=== PATIENT | female | born 1980 | race Caucasian/White ===

== ENCOUNTER 2019-11-23 08:02 | Emergency (ER) | payer BC ==
[2019-11-23] MEDS ORDERED: Sodium Chloride 0.9% 10 ML Syringe FLUSH PRN (08:30)
[2019-11-23] MEDS ORDERED: Sodium Chloride 0.9% 1,000 ML IV STA ×2 (08:31→09:18)
[2019-11-23] MEDS ORDERED: Ondansetron 4 MG/2 ML SDV IVPUSH ONE (08:31)
--- NOTE | 2019-11-23 08:58 | EDM.PDOC ---
ED HPI GENERAL MEDICAL PROBLEM - General Chief Complaint: Gastrointestinal Problem Stated Complaint: VOMITING X 5 DAYS Time Seen by Provider: 11/23/19 08:07 Source of Information: Reports: Patient History Limitations: Reports: No Limitations - History of Present Illness INITIAL COMMENTS - FREE TEXT/NARRATIVE: Patient is a 39 year old female presenting to the emergency department with complaints of 2-week history of intermittent nausea and vomiting, fatigue, and weakness. Patient states she has not felt right since about September when she was started on Synthroid 100 mcg for hypothyroidism. Prior to this, she was taking levothyroxine at a lower dose. She states that she has been feeling increasingly anxious and panicky at times. She describes have episodes where she feels like her heart is racing. Patient also states she has had a mild productive cough since April, however she does have asthma and has been attributing it to allergies. She was seen in the walk-in clinic about a week and a half ago. States lab work was done at that time and found to be normal. She received a liter of IV fluids and a prescription for Zofran. Around that time, she states she was also running a fever, however this has resolved. At one point she had some left upper quadrant abdominal pain, however this has not been present for about a week and a half. She denies any flank pain, dysuria, or frequency. On average, she vomits a couple times a day. She is able to keep fluids down, however states she is only been able to really eat crackers due to the nausea. Denies any chance she could be as she does a history of a tubal ligation. Headache Pain Score (Numeric/FACES): 3 - Related Data Allergies Allergy/AdvReac Type Severity Reaction Status Date / Time No Known Allergies Allergy Verified 11/23/19 08:25 Home Meds: Home Meds Albuterol Sulfate [Albuterol Sulfate Hfa] 1 puff INH ASDIRECTED 11/23/19 [History] Fluticasone Propionate [Flovent HFA] 1 inh INH ASDIRECTED 11/23/19 [History] Levothyroxine Sodium [Synthroid] 100 mcg PO DAILY 11/23/19 [History] Ondansetron [Zofran ODT] 4 mg PO ASDIRECTED 11/23/19 [History] Ondansetron [Zofran ODT] 4 mg PO Q6H PRN #20 tab.dis 11/23/19 [Rx] hydrOXYzine HCL [Atarax] 50 - 100 mg PO Q6H PRN #10 tab 11/23/19 [Rx] Past Medical History Respiratory History: Reports: 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 Denies: Fever HEENT: Reports: No Symptoms Respiratory: Reports: Cough. Denies: Shortness of Breath Cardiovascular: Reports: No Symptoms. Denies: Dyspnea on Exertion, Edema, Syncope Endocrine: Reports: No Symptoms GI/Abdominal: Reports: Nausea, Vomiting. Denies: Abdominal Pain, Diarrhea : Reports: No Symptoms Musculoskeletal: Reports: No Symptoms Skin: Reports: No Symptoms Neurological: Reports: No Symptoms Psychiatric: Reports: No Symptoms Hematologic/Lymphatic: Reports: No Symptoms Immunologic: Reports: No Symptoms ED EXAM, GI/ABD - Physical Exam Exam: See Below General Appearance: Alert, WD/WN, No Apparent Distress Eyes: Bilateral: Normal Appearance Respiratory/Chest: No Respiratory Distress, Lungs Clear, Normal Breath Sounds, No Accessory Muscle Use, Chest Non-Tender Cardiovascular: Normal Peripheral Pulses, Regular Rate, Rhythm, No Edema, No Gallop, No JVD, No Murmur, No Rub GI/Abdominal Exam: Normal Bowel Sounds, Soft, Non-Tender, No Organomegaly, No Distention, No Abnormal Bruit, No Mass, Pelvis Stable Neurological: Alert, Oriented, CN II-XII Intact, Normal Cognition, Normal Gait, Normal Reflexes, No Motor/Sensory Deficits Psychiatric: Normal Affect, Normal Mood Skin Exam: Warm, Dry, Intact, Normal Color, No Rash Course - Vital Signs Last Recorded V/S: Last Vital Signs Temp 99.1 F 11/23/19 11:21 Pulse 71 11/23/19 11:34 Resp 15 11/23/19 08:12 BP 130/89 11/23/19 11:21 Pulse Ox 98 11/23/19 11:21 Orthostatic Blood Pressure [ 118/87 Standing] Orthostatic Blood Pressure [ 129/95 Sitting] Orthostatic Blood Pressure [ 138/94 Supine] - Orders/Labs/Meds Orders: Active Orders 24 hr Category Date Time Status CORONAVIRUS COVID-19 PCR PHL Routine Lab 11/23/19 11:18 Received Peripheral IV Insertion Adult [OM.PC] Stat Oth 11/23/19 08:30 Ordered Labs: Laboratory Tests 11/23/19 11/23/19 11/23/19 Range/Units 08:30 08:30 10:28 WBC 8.09 (3.98-10.04) K/mm3 RBC 5.30 H (3.98-5.22) M/mm3 Hgb 16.5 H (11.2-15.7) gm/dl Hct 47.1 H (34.1-44.9) % MCV 88.9 (79.4-94.8) fl MCH 31.1 (25.6-32.2) pg MCHC 35.0 (32.2-35.5) g/dl RDW Std Deviation 49.3 H (36.4-46.3) fL Plt Count 221 (182-369) K/mm3 MPV 9.5 (9.4-12.3) fl Neut % (Auto) 72.5 H (34.0-71.1) % Lymph % (Auto) 16.1 L (19.3-51.7) % [place] % (Auto) 9.9 (4.7-12.5) % Eos % (Auto) 1.2 (0.7-5.8) Baso % (Auto) 0.2 (0.1-1.2) % Neut # (Auto) 5.86 (1.56-6.13) K/mm3 Lymph # (Auto) 1.30 (1.18-3.74) K/mm3 [place] # (Auto) 0.80 H (0.24-0.36) K/mm3 Eos # (Auto) 0.10 (0.04-0.36) K/mm3 Baso # (Auto) 0.02 (0.01-0.08) K/mm3 Sodium 140 (136-145) mEq/L Potassium 4.2 (3.5-5.1) mEq/L Chloride 102 (98-107) mEq/L Carbon Dioxide 24 (21-32) mEq/L Anion Gap 18.2 H (5-15) BUN 7 (7-18) mg/dL Creatinine 1.1 H (0.55-1.02) mg/dL Est Cr Clr Drug Dosing 57.36 mL/min Estimated GFR (MDRD) 56 (>60) mL/min BUN/Creatinine Ratio 6.4 L (14-18) Glucose 103 (74-106) mg/dL Calcium 9.3 (8.5-10.1) mg/dL Magnesium 1.8 (1.8-2.4) mg/dl Total Bilirubin 1.1 H (0.2-1.0) mg/dL AST 30 (15-37) U/L ALT 38 (14-59) U/L Alkaline Phosphatase 65 (46-116) U/L C-Reactive Protein <0.2 (<1.0) mg/dL Total Protein 7.8 (6.4-8.2) g/dl Albumin 4.4 (3.4-5.0) g/dl Globulin 3.4 gm/dL Albumin/Globulin Ratio 1.3 (1-2) Free T4 0.94 (0.76-1.46) ng/dL TSH 3rd Generation 8.813 H (0.358-3.74) uIU/mL Urine Color Yellow (Yellow) Urine Appearance Clear (Clear) Urine pH 6.5 (5.0-8.0) Ur Specific [place] > or = 1.030 (1.005-1.030) Urine Protein 1+ H (Negative) Urine Glucose (UA) Negative (Negative) Urine Ketones 2+ H (Negative) Urine Occult Blood Negative (Negative) Urine Nitrite Negative (Negative) Urine Bilirubin Negative (Negative) Urine Urobilinogen 0.2 (0.2-1.0) Ur Leukocyte Esterase Negative (Negative) U Hyaline Cast (Auto) 0-5 (0-5) /lpf Urine RBC 0-5 (0-5) /hpf Urine WBC 0-5 (0-5) /hpf Ur Squamous Epith Cells 5-10 H (0-5) /hpf Urine Bacteria Moderate H (FEW) /hpf Urine Mucus Few (FEW) /hpf Meds: Medications Discontinued Medications Generic Name Dose Route Start Last Admin Trade Name Freq PRN Reason Stop Dose Admin Diphenhydramine HCl 25 mg 10/03/20 09:29 11/23/19 09:39 Benadryl IVPUSH 11/23/19 09:30 25 mg ONETIME ONE Administration Sodium Chloride 1,000 mls @ 999 mls/hr 11/23/19 08:31 11/23/19 08:41 Normal Saline IV 11/23/19 09:31 999 mls/hr NOW STA Administration Sodium Chloride 1,000 mls @ 999 mls/hr 11/23/19 09:18 11/23/19 09:33 Normal Saline IV 11/23/19 10:18 999 mls/hr NOW STA Administration Metoclopramide HCl 7.5 mg 11/23/19 09:29 11/23/19 09:32 Reglan IVPUSH 11/23/19 09:30 7.5 mg ONETIME ONE Administration Metoclopramide HCl Confirm 11/23/19 09:30 11/23/19 09:32 Reglan Administered 11/23/19 09:31 Not Given Dose 10 mg .ROUTE .STK-MED ONE Ondansetron HCl 4 mg 11/23/19 08:31 11/23/19 08:41 Zofran IVPUSH 11/23/19 08:32 4 mg ONETIME ONE Administration Sodium Chloride 10 ml 11/23/19 08:30 11/23/19 08:41 Saline Flush FLUSH 10 ml ASDIRECTED PRN Administration Keep Vein Open - Re-Assessments/Exams Free Text/Narrative Re-Assessment/Exam: 11/23/19 09:40 Hematology was significant for hemoglobin elevated at 16.5 with a hematocrit of 47.1, anion gap 18.2, creatinine 1.1, total bili 1.1, TSH 8.813. Patient continued to be nauseous. I have ordered a second liter of saline, Reglan 7.5 mg IV, and Benadryl 25 mg IV. Patient continues to be hypothyroid. Urinalysis results are pending. 11/23/19 10:54 Urinalysis is positive for 1+ protein and 2+ ketones. Leukocyte esterase and nitrates were negative. There is no WBCs in the urine. Patient is feeling somewhat better after the IV fluids and medications given. She is had no further episodes of vomiting. We will complete a coronavirus test today as some younger adults only present with GI symptoms, however my suspicion for this is quite low. Discussed with patient that she should try to get as much fluid as she can. Gatorade and Powerade are the best options. Discussed that she is still hypothyroid, however patient states that she thinks her TSH was around 15 before her medications were started. Would like her to follow-up with her primary care provider on Monday to make her aware of her symptoms and for ongoing monitoring. I will provide a prescription for hydroxyzine to help with her intermittent anxiety and panicky feelings. She agrees to this plan. She states she has been referred to a thyroid specialist, however she has not scheduled an appointment thus far. Discharge instructions as documented. Departure - Departure Time of Disposition: 10:55 Disposition: Home, Self-Care 01 Condition: Good Clinical Impression: Nausea & vomiting Qualifiers: Vomiting type: unspecified Vomiting Intractability: non-intractable Qualified Code(s): R11.2 - Nausea with vomiting, unspecified Hypothyroidism Qualifiers: Hypothyroidism type: unspecified Qualified Code(s): E03.9 - Hypothyroidism, unspecified - Discharge Information *PRESCRIPTION DRUG MONITORING PROGRAM REVIEWED*: No *COPY OF PRESCRIPTION DRUG MONITORING REPORT IN PATIENT RAUL: No Prescriptions: hydrOXYzine HCL [Atarax] 50 - 100 mg PO Q6H PRN #10 tab PRN Reason: Anxiety Ondansetron [Zofran ODT] 4 mg PO Q6H PRN #20 tab.dis PRN Reason: Nausea/Vomiting Instructions: Nausea and Vomiting, Adult Referrals: Yolande Ferreira PENAL OFFICER [Primary Care Provider] - Forms: ED Department Discharge Additional Instructions: You were seen in the emergency department today for intermittent nausea and vomiting over the last 2 weeks as well as not feeling yourself since your thyroid medications were started September. Your work-up included blood work, urinalysis, and a coronavirus test. Your blood work revealed that you were dehydrated as well as that you continue to be hypothyroid. Your urinalysis did not show any signs of infection. COVID test results take 24-72 hours to become available and you will be notified of these. You received 2 L of IV fluid in the emergency department. You also received Zofran and Reglan for nausea. Recommend that you go home and rest. Ensure that you are taking in as much fluid as you can tolerate. Gatorade and Powerade are good choices as they have electrolytes as well as hydration. A prescription for Zofran has been sent to [facility]. Use this medication as prescribed. A prescription for hydroxyzine has been provided for anxiety. Take this as prescribed. Please be aware that this may make you tired, therefore do not drive or work after taking the medication until you know how it is going to affect you. Recommend that you call and schedule an appointment with your primary care provider Monday to make her aware of how you have been feeling and for ongoing management. If you should experience any new or worsening symptoms of concern, please do not hesitate to return to the emergency department. Sepsis Event Note (ED) - Evaluation Sepsis Screening Result: No Definite Risk - Focused Exam Vital Signs: Vital Signs Temp Pulse Resp BP Pulse Ox 11/23/19 11:34 71 11/23/19 11:21 99.1 F 98 130/89 98 11/23/19 08:12 98.0 F 111 H 15 135/94 H 97 - My Orders Last 24 Hours: My Active Orders 11/23/19 08:30 Peripheral IV Insertion Adult [OM.PC] Stat 11/23/19 11:18 CORONAVIRUS COVID-19 PCR PHL Routine - Assessment/Plan Last 24 Hours: My Active Orders 11/23/19 08:30 Peripheral IV Insertion Adult [OM.PC] Stat 11/23/19 11:18 CORONAVIRUS COVID-19 PCR PHL Routine
[2019-11-23] MEDS ORDERED: Metoclopramide 10 MG/2 ML SDV IVPUSH ONE (09:29)
[2019-11-23] MEDS ORDERED: diphenhydrAMINE 50 MG/ML SDV IVPUSH ONE (09:29)
[2019-11-23] MEDS ORDERED: Metoclopramide 10 MG/2 ML SDV ONE (09:30)
== END 2019-11-23 11:35 | disposition home or self-care (01) ==
LOC: JD.ED 08:02
DX: E03.9 Hypothyroidism, unspecified (principal); R11.2 Nausea with vomiting, unspecified; J45.909 Unspecified asthma, uncomplicated; Z98.51 Tubal ligation status; Z79.899 Other long term (current) drug therapy; Z11.59 Encounter for screening for other viral diseases
CPT/HCPCS: 36415; 80053; 81001; 83735; 84439; 84443; 85025; 86140; 87635; 96361; 96374; 96375; 99284; J1200; J2405; J2765; J7030; U0002

== ENCOUNTER 2019-12-11 13:40 | Emergency (ER) | payer BC ==
[2019-12-11] MEDS ORDERED: HYDROmorphone 0.5 MG/0.5 ML Syringe IVPUSH ONE (14:36)
[2019-12-11] MEDS ORDERED: Ondansetron 4 MG/2 ML SDV IVPUSH ONE (14:36)
[2019-12-11] MEDS ORDERED: Acetaminophen 325 MG Tab PO ONE (14:37)
--- NOTE | 2019-12-11 14:40 | EDM.PDOC ---
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 body ache relief or Tylenol 650 mg every 4 hours. You should anticipate improvement in symptoms particularily with resolution of fever over the next 48 hours. Suggest follow-up with your personal care physician towards the middle of next week to make sure that you are responding to therapy. Sepsis Event Note (ED) - Evaluation Sepsis Screening Result: No Definite Risk - Focused Exam Vital Signs: Vital Signs Temp Temp Pulse Resp BP Pulse Ox 12/11/19 14:54 36.6 C 12/11/19 13:47 36.4 C 127 H 16 141/99 H 94 L - My Orders Last 24 Hours: My Active Orders 12/11/19 14:37 EKG Documentation Completion [RC] STAT Chest 1V Frontal [CR] Stat 12/11/19 14:39 Blood Culture x2 Reflex Set [OM.PC] Stat 12/11/19 14:45 Dextrose 5%-0.9% NaCl [Dextrose 5%-Normal Saline] 1,000 ml IV ASDIRECTED 12/11/19 14:55 CULTURE BLOOD [BC] Stat 12/11/19 15:05 CULTURE BLOOD [BC] Stat 12/11/19 16:56 Head wo Cont [CT] Stat 12/11/19 17:00 Dextrose 5%-Lactated Ringers 1,000 ml IV ASDIRECTED 12/11/19 17:45 cefTRIAXone [Rocephin] 2 gm Sodium Chloride 0.9% [Normal Saline] 100 ml IV Q24H 12/11/19 18:45 Ketorolac [Toradol] 30 mg IVPUSH ONETIME - Assessment/Plan Last 24 Hours: My Active Orders 12/11/19 14:37 EKG Documentation Completion [RC] STAT Chest 1V Frontal [CR] Stat 12/11/19 14:39 Blood Culture x2 Reflex Set [OM.PC] Stat 12/11/19 14:45 Dextrose 5%-0.9% NaCl [Dextrose 5%-Normal Saline] 1,000 ml IV ASDIRECTED 12/11/19 14:55 CULTURE BLOOD [BC] Stat 12/11/19 15:05 CULTURE BLOOD [BC] Stat 12/11/19 16:56 Head wo Cont [CT] Stat 12/11/19 17:00 Dextrose 5%-Lactated Ringers 1,000 ml IV ASDIRECTED 12/11/19 17:45 cefTRIAXone [Rocephin] 2 gm Sodium Chloride 0.9% [Normal Saline] 100 ml IV Q24H 12/11/19 18:45 Ketorolac [Toradol] 30 mg IVPUSH ONETIME
[2019-12-11] MEDS ORDERED: Dextrose 5%-0.9% NaCl 1,000 ML IV SCH (14:45)
[2019-12-11] MEDS ORDERED: Dextrose 5%-Lactated Ringers 1,000 ML IV SCH (17:00)
[2019-12-11] MEDS ORDERED: cefTRIAXone 2 GM in Sodium Chloride 0.9% 100 ML IV SCH (17:45)
[2019-12-11] MEDS ORDERED: Ketorolac 30 MG/ML SDV IVPUSH SCH (18:45)
== END 2019-12-11 19:17 | disposition home or self-care (01) ==
LOC: JD.ED 13:40
DX: J01.40 Acute pansinusitis, unspecified (principal); R50.9 Fever, unspecified; J45.909 Unspecified asthma, uncomplicated; E03.9 Hypothyroidism, unspecified; Z20.828 Contact with and (suspected) exposure to other viral communicable diseases; Z79.899 Other long term (current) drug therapy
CPT/HCPCS: 36415; 70450; 71045; 80053; 81001; 82553; 82728; 83605; 83615; 83735; 83880; 84484; 84703; 85025; 85379; 85610; 85730; 86140; 87040; 87635; 93005; 96365; 96375; 99285; A9270; J0696; J1170; J1885; J2405; J7042; J7050; J7121; U0002

== ENCOUNTER 2020-04-28 14:04 | Emergency (ER) | payer BC ==
[2020-04-28] MEDS ORDERED: Sodium Chloride 0.9% 10 ML Syringe FLUSH PRN (14:29)
[2020-04-28] MEDS ORDERED: Metoclopramide 10 MG/2 ML SDV IVPUSH ONE (14:30)
[2020-04-28] MEDS ORDERED: Sodium Chloride 0.9% 1,000 ML IV ONE ×2 (14:30→16:41)
--- NOTE | 2020-04-28 17:12 | EDM.PDOC ---
<Agus Angela M - Last Filed: 04/28/20 17:00> ED HPI GENERAL MEDICAL PROBLEM - General Chief Complaint: Gastrointestinal Problem Stated Complaint: VOMITING AND UNABLE TO KEEP ANYTHING DOWN Time Seen by Provider: 04/28/20 14:14 Source of Information: Reports: Patient History Limitations: Reports: No Limitations - History of Present Illness INITIAL COMMENTS - FREE TEXT/NARRATIVE: 39 year old female presents to the Ed with complaints of nausea and vomiting x 1 week. She states that she has been unable to keep any food or fluids down. Has zofran at home but took it and then immediately drank water and vomited so she thought that it didnt work. She was seen one other time in the Ed for vomiting and did not follow up with her primary care provider after the ED visit. She has a history of hypothyroidism and stopped taking her medication more than 6 months ago because she felt like it made her "dizzy". Denies any recent fever, chills, cough or diarrhea. State she has had no energy and just wants to lay in bed. Headache Pain Score (Numeric/FACES): 3 - Related Data Allergies Allergy/AdvReac Type Severity Reaction Status Date / Time No Known Allergies Allergy Verified 04/29/20 08:45 Home Meds: Home Meds Albuterol Sulfate [Albuterol Sulfate Hfa] 1 puff INH ASDIRECTED 11/23/19 [History] Levothyroxine Sodium [Synthroid] 100 mcg PO DAILY 11/23/19 [History] Ondansetron [Zofran ODT] 4 mg PO Q6H PRN #20 tab.dis 11/23/19 [Rx] Fluticasone Propionate [Flovent HFA] 1 puff INH DAILY 04/29/20 [History] Magnesium 200 mg PO DAILY #30 tablet 04/29/20 [Rx] Metoclopramide HCl [Reglan] 10 mg PO Q6HR PRN #20 tablet 04/29/20 [Rx] Past Medical History Cardiovascular History: Reports: Syncope Respiratory History: Reports: Asthma 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 - Infectious Disease History Infectious Disease History: Reports: Chicken Pox - Past Surgical History Female Surgical History: Reports: Tubal Ligation Social & Family History - Tobacco Use Tobacco Use Status *Q: Never Tobacco User - Caffeine Use Caffeine Use: Reports: Soda - Recreational Drug Use Recreational Drug Use: No - Living Situation & Occupation Living situation: Reports: Occupation: Unemployed ED ROS GENERAL - Review of Systems Review Of Systems: See Below Constitutional: Reports: Fatigue. Denies: Fever, Chills, Diaphoresis HEENT: Reports: No Symptoms Respiratory: Reports: No Symptoms Cardiovascular: Reports: No Symptoms Endocrine: Reports: Fatigue GI/Abdominal: Reports: Nausea, Vomiting. Denies: Abdominal Pain, Constipation, Diarrhea : Reports: No Symptoms Musculoskeletal: Reports: No Symptoms Skin: Reports: No Symptoms Neurological: Reports: No Symptoms Psychiatric: Reports: No Symptoms Hematologic/Lymphatic: Reports: No Symptoms Immunologic: Reports: No Symptoms ED EXAM, GI/ABD - Physical Exam Exam: See Below Exam Limited By: No Limitations General Appearance: Alert, WD/WN, Moderate Distress Ears: Normal External Exam, Hearing Grossly Normal Nose: Normal Inspection Throat/Mouth: Normal Inspection, Normal Lips, Normal Voice, No Airway Compromise Head: Atraumatic, Normocephalic Neck: Normal Inspection, Supple, Non-Tender, Full Range of Motion Respiratory/Chest: No Respiratory Distress, Lungs Clear, Normal Breath Sounds, No Accessory Muscle Use, Chest Non-Tender Cardiovascular: Normal Peripheral Pulses, Regular Rate, Rhythm, No Edema, No Murmur GI/Abdominal Exam: Normal Bowel Sounds, Soft, Non-Tender, No Distention (Female) Exam: Deferred Rectal (Female) Exam: Deferred Back Exam: Normal Inspection, Full Range of Motion Extremities: Normal Inspection, Normal Range of Motion, Non-Tender, No Pedal Edema, Normal Capillary Refill Neurological: Alert, Oriented, Normal Cognition Psychiatric: Normal Affect, Normal Mood Skin Exam: Warm, Dry, Intact, Normal Color, No Rash Lymphatic: No Adenopathy Course - Vital Signs Text/Narrative:: I have ordered CBC, CMP, TSH, and a UA on this patient. I have also ordered a liter of NS and zofran as she is likely very dehydrated. - Re-Assessments/Exams Free Text/Narrative Re-Assessment/Exam: 04/28/20 17:12 Labs reveal a WBC of 6.28, hemoglobin 16.8, hematocrit 49.1, platelet count 125, sodium 141, potassium 3.5, chloride 95, anion gap 25.5, BUN 9, creatinine 1.0, glucose 86, calcium 10.5, magnesium 1.7, total bilirubin 1.9, AST 361, ALT 208, alk phos 102, TSH 8.706 Urinalysis reveals 3+ protein, 3+ ketones, 1+ urine occult blood, negative nitrite, 1+ bilirubin, negative leuk esterase, 10-20 casts After first liter of fluid, the patient states she is feeling much better however I am going to order 1 more liter of normal saline as she is significantly dehydrated. She is currently laying in bed eating ice. Did discuss her lab results with her. She denies any excessive alcohol intake, any excessive Tylenol intake that would elevate her liver enzymes. She states she does take a moderate amount of ibuprofen. Questioning if liver elevation is due to dehydration or hypothyroidism. 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 I also did discuss with her that when she is feeling nauseated to take Zofran and allow it to work for about 30 to 40 minutes before attempting to eat or drink anything. I have added a lipase and a GGT onto the patient's lab work. I have reviewed her case with Dr. Macario and he has agreed to take over the patient's care. Departure - Departure Disposition: Home, Self-Care 01 Clinical Impression: Vomiting, Dehydration Abdominal pain Qualifiers: Abdominal location: upper abdomen, unspecified Qualified Code(s): R10.10 - Upper abdominal pain, unspecified - Discharge Information Instructions: Dehydration, Adult, [id number] Referrals: Yolande Ferreira, [facility] [Primary Care Provider] - Forms: ED Department Discharge Additional Instructions: Clear liquids until morning, than very careful bland diet as tolerated. Zofran as previously prescribed for further nausea or vomiting as needed. US of GB as soon as that works out for you. Radiology will call you tomorrow morning to set up an appointment. That needs to be done in the morning with nothing to eat or drink since midnight the night before. Follow up with Laine Ferreira about 1 days after the US for for results, recheck, further eval and treatment as needed. Return to ED as needed if symptoms worsening in any way. Sepsis Event Note (ED) - Evaluation Sepsis Screening Result: No Definite Risk <José Macario - Last Filed: 04/30/20 07:26> Course - Vital Signs Last Recorded V/S: Last Vital Signs Temp 98.3 F 04/28/20 18:30 Pulse 90 04/28/20 18:30 Resp 16 04/28/20 18:30 BP 136/75 04/28/20 18:30 Pulse Ox 97 04/28/20 18:30 - Orders/Labs/Meds Orders: Medication Orders Sodium Chloride (Sodium Chloride 0.9% 10 Ml Syringe) 10 ml FLUSH ASDIRECTED PRN PRN Reason: Keep Vein Open Last Admin: 04/28/20 14:15 Dose: 10 ml Documented by: PERNELL Labs: Laboratory Tests 04/28/20 04/28/20 04/28/20 Range/Units 14:25 14:25 14:25 WBC 6.28 (3.98-10.04) K/mm3 RBC 5.19 (3.98-5.22) M/mm3 Hgb 16.8 H (11.2-15.7) gm/dl Hct 49.1 H (34.1-44.9) % MCV 94.6 D (79.4-94.8) fl MCH 32.4 H (25.6-32.2) pg MCHC 34.2 (32.2-35.5) g/dl RDW Std Deviation 49.4 H (36.4-46.3) fL Plt Count 125 L D (182-369) K/mm3 MPV 9.7 (9.4-12.3) fl Neut % (Auto) 80.8 H (34.0-71.1) % Lymph % (Auto) 8.0 L (19.3-51.7) % [place] % (Auto) 10.7 (4.7-12.5) % Eos % (Auto) 0 L (0.7-5.8) Baso % (Auto) 0.3 (0.1-1.2) % Neut # (Auto) 5.08 (1.56-6.13) K/mm3 Lymph # (Auto) 0.50 L (1.18-3.74) K/mm3 [place] # (Auto) 0.67 H (0.24-0.36) K/mm3 Eos # (Auto) 0.00 L (0.04-0.36) K/mm3 Baso # (Auto) 0.02 (0.01-0.08) K/mm3 Manual Slide Review Abnormal smear Sodium 141 (136-145) mEq/L Potassium 3.5 (3.5-5.1) mEq/L Chloride 95 L (98-107) mEq/L Carbon Dioxide 24 (21-32) mEq/L Anion Gap 25.5 H (5-15) BUN 9 (7-18) mg/dL Creatinine 1.0 (0.55-1.02) mg/dL Est Cr Clr Drug Dosing 65.87 mL/min Estimated GFR (MDRD) > 60 (>60) mL/min BUN/Creatinine Ratio 9.0 L (14-18) Glucose 86 (74-106) mg/dL Calcium 10.5 H (8.5-10.1) mg/dL Magnesium 1.7 L (1.8-2.4) mg/dl Total Bilirubin 1.9 H (0.2-1.0) mg/dL GGT 565 H (5-55) U/L AST 361 H (15-37) U/L ALT 208 H (14-59) U/L Alkaline Phosphatase 102 (46-116) U/L Total Protein 8.2 (6.4-8.2) g/dl Albumin 4.7 (3.4-5.0) g/dl Globulin 3.5 gm/dL Albumin/Globulin Ratio 1.3 (1-2) Lipase (73-393) U/L TSH 3rd Generation 8.706 H (0.358-3.74) uIU/mL Urine Color (Yellow) Urine Appearance (Clear) Urine pH (5.0-8.0) Ur Specific [place] (1.005-1.030) Urine Protein (Negative) Urine Glucose (UA) (Negative) Urine Ketones (Negative) Urine Occult Blood (Negative) Urine Nitrite (Negative) Urine Bilirubin (Negative) Urine Urobilinogen (0.2-1.0) Ur Leukocyte Esterase (Negative) U Hyaline Cast (Auto) (0-5) /lpf Urine RBC (0-5) /hpf Urine WBC (0-5) /hpf Ur Epithelial Cells (0-5) /hpf Urine Bacteria (FEW) /hpf Urine Mucus (FEW) /hpf 04/28/20 04/28/20 Range/Units 14:25 15:10 WBC (3.98-10.04) K/mm3 RBC (3.98-5.22) M/mm3 Hgb (11.2-15.7) gm/dl Hct (34.1-44.9) % MCV (79.4-94.8) fl MCH (25.6-32.2) pg MCHC (32.2-35.5) g/dl RDW Std Deviation (36.4-46.3) fL Plt Count (182-369) K/mm3 MPV (9.4-12.3) fl Neut % (Auto) (34.0-71.1) % Lymph % (Auto) (19.3-51.7) % [place] % (Auto) (4.7-12.5) % Eos % (Auto) (0.7-5.8) Baso % (Auto) (0.1-1.2) % Neut # (Auto) (1.56-6.13) K/mm3 Lymph # (Auto) (1.18-3.74) K/mm3 [place] # (Auto) (0.24-0.36) K/mm3 Eos # (Auto) (0.04-0.36) K/mm3 Baso # (Auto) (0.01-0.08) K/mm3 Manual Slide Review Sodium (136-145) mEq/L Potassium (3.5-5.1) mEq/L Chloride (98-107) mEq/L Carbon Dioxide (21-32) mEq/L Anion Gap (5-15) BUN (7-18) mg/dL Creatinine (0.55-1.02) mg/dL Est Cr Clr Drug Dosing mL/min Estimated GFR (MDRD) (>60) mL/min BUN/Creatinine Ratio (14-18) Glucose (74-106) mg/dL Calcium (8.5-10.1) mg/dL Magnesium (1.8-2.4) mg/dl Total Bilirubin (0.2-1.0) mg/dL GGT (5-55) U/L AST (15-37) U/L ALT (14-59) U/L Alkaline Phosphatase (46-116) U/L Total Protein (6.4-8.2) g/dl Albumin (3.4-5.0) g/dl Globulin gm/dL Albumin/Globulin Ratio (1-2) Lipase 273 (73-393) U/L TSH 3rd Generation (0.358-3.74) uIU/mL Urine Color Yellow (Yellow) Urine Appearance Slt cloudy H (Clear) Urine pH 5.5 (5.0-8.0) Ur Specific [place] > or = 1.030 (1.005-1.030) Urine Protein 3+ H (Negative) Urine Glucose (UA) Negative (Negative) Urine Ketones 3+ H (Negative) Urine Occult Blood 1+ H (Negative) Urine Nitrite Negative (Negative) Urine Bilirubin 1+ H (Negative) Urine Urobilinogen 0.2 (0.2-1.0) Ur Leukocyte Esterase Negative (Negative) U Hyaline Cast (Auto) 10-20 H (0-5) /lpf Urine RBC 0-5 (0-5) /hpf Urine WBC 0-5 (0-5) /hpf Ur Epithelial Cells 5-10 H (0-5) /hpf Urine Bacteria Few (FEW) /hpf Urine Mucus Many H (FEW) /hpf Meds: Medications Generic Name Dose Route Start Last Admin Trade Name Freq PRN Reason Stop Dose Admin Sodium Chloride 10 ml 04/28/20 14:29 04/28/20 14:15 Sodium Chloride 0.9% 10 Ml Syringe FLUSH 10 ml ASDIRECTED PRN Administration Keep Vein Open Discontinued Medications Generic Name Dose Route Start Last Admin Trade Name Freq PRN Reason Stop Dose Admin Sodium Chloride 1,000 mls @ 999 mls/hr 04/28/20 14:30 04/28/20 14:42 Normal Saline IV 04/28/20 15:30 999 mls/hr ONETIME ONE Administration Metoclopramide HCl 5 mg 04/28/20 14:30 04/28/20 14:40 Metoclopramide 10 Mg/2 Ml Sdv IVPUSH 04/28/20 14:31 5 mg ONETIME ONE Administration - Re-Assessments/Exams Free Text/Narrative Re-Assessment/Exam: 04/28/20 18:30. I assumed care from Reagan Angela after change of shift. Pt is feeling much better after 2nd liter of IVF. With her GGT and other liver enzymes mildly elevated I have offered to get an US of her Abd. She declines doing that this evening. She appears anxious to go home. Have written order for outpatient US. Discharge instr. as documented. Departure - Departure Time of Disposition: 18:12 Condition: Fair
[2020-04-28] MEDS ORDERED: HYDROmorphone 0.5 MG/0.5 ML Syringe IVPUSH ONE (18:10)
== END 2020-04-28 18:30 | disposition home or self-care (01) ==
LOC: JD.ED 14:04
DX: E86.0 Dehydration (principal); R11.2 Nausea with vomiting, unspecified; R10.10 Upper abdominal pain, unspecified; J45.909 Unspecified asthma, uncomplicated; E03.9 Hypothyroidism, unspecified; Z79.899 Other long term (current) drug therapy
CPT/HCPCS: 36415; 80053; 81001; 82977; 83690; 83735; 84443; 85025; 96361; 96374; 96375; 99284; J1170; J2765; J7030

== ENCOUNTER 2020-04-29 03:45 | Inpatient (IN) | payer BC ==
[2020-04-29] MEDS ORDERED: Sodium Chloride 0.9% 10 ML Syringe FLUSH PRN (04:11)
[2020-04-29] MEDS ORDERED: Ondansetron 4 MG/2 ML SDV IVPUSH ONE (04:11)
[2020-04-29] MEDS ORDERED: Lactated Ringers 1,000 ML IV SCH (04:15)
--- NOTE | 2020-04-29 04:19 | EDM.PDOC ---
ED HPI GENERAL MEDICAL PROBLEM - General Chief Complaint: Gastrointestinal Problem Stated Complaint: VOMITING Time Seen by Provider: 04/29/20 04:03 Source of Information: Reports: Patient History Limitations: Reports: No Limitations - History of Present Illness INITIAL COMMENTS - FREE TEXT/NARRATIVE: The patient presents with nausea and vomiting. This has been going on for about a week. She was seen here yesterday and was scheduled to have and US today. She says she has not been able to keep anything down and she is weak. Her has to carry her around now. She did get a couple liters of fluid yesterday and she did feel good when she left but lat night she started to vomit again. She is very weak. She still has her gallbladder and appendix. She had elevated liver enzymes yesterday. She does not drink and did not take acetaminophen in excess. She has no fever, chills, or cough. She has no chest pain or shortness of breath. She has no diarrhea or dysuria. She does have a history of hypothyroidism and she has not been taking her thyroid medication because it made her dizzy. Onset: Gradual Duration: Week(s): Location: Reports: Abdomen Quality: Reports: Sharp Severity: Moderate Improves with: Reports: None Worsens with: Reports: None Associated Symptoms: Reports: Nausea/Vomiting. Denies: Chest Pain, Cough, Fever/Chills, Headaches, Shortness of Breath Left Abdomen Pain Score (Numeric/FACES): 5 - Related Data Allergies Allergy/AdvReac Type Severity Reaction Status Date / Time No Known Allergies Allergy Verified 04/29/20 03:57 Home Meds: Home Meds Albuterol Sulfate [Albuterol Sulfate Hfa] 1 puff INH ASDIRECTED 11/23/19 [History] Levothyroxine Sodium [Synthroid] 100 mcg PO DAILY 11/23/19 [History] Ondansetron [Zofran ODT] 4 mg PO Q6H PRN #20 tab.dis 11/23/19 [Rx] Magnesium 200 mg PO DAILY #30 tablet 04/29/20 [Rx] Metoclopramide HCl [Reglan] 10 mg PO Q6HR PRN #20 tablet 04/29/20 [Rx] Past Medical History Cardiovascular History: Reports: Syncope Respiratory History: Reports: Asthma 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 - Infectious Disease History Infectious Disease History: Reports: Chicken Pox - Past Surgical History Female Surgical History: Reports: Tubal Ligation Social & Family History - Tobacco Use Tobacco Use Status *Q: Never Tobacco User Second Hand Smoke Exposure: No - Caffeine Use Caffeine Use: Reports: None - Recreational Drug Use Recreational Drug Use: No - Living Situation & Occupation Living situation: Reports: Occupation: Unemployed ED ROS GENERAL - Review of Systems Review Of Systems: See Below Constitutional: Reports: No Symptoms HEENT: Reports: No Symptoms Respiratory: Reports: No Symptoms Cardiovascular: Reports: No Symptoms Endocrine: Reports: No Symptoms GI/Abdominal: Reports: Abdominal Pain, Nausea, Vomiting : Reports: No Symptoms Musculoskeletal: Reports: No Symptoms ED EXAM, GI/ABD - Physical Exam Exam: See Below Exam Limited By: No Limitations General Appearance: Alert, No Apparent Distress Ears: Normal External Exam Nose: Normal Inspection Head: Atraumatic, Normocephalic Neck: Normal Inspection Respiratory/Chest: No Respiratory Distress, Lungs Clear, Normal Breath Sounds Cardiovascular: Regular Rate, Rhythm, No Edema, No Murmur GI/Abdominal Exam: Soft, No Organomegaly, No Mass, Tender (Mild tenderness to the left upper abdomen) Course - Vital Signs Last Recorded V/S: Last Vital Signs Temp 97.6 F 04/29/20 03:53 Pulse 111 H 04/29/20 03:53 Resp 20 04/29/20 03:53 BP 139/91 H 04/29/20 03:53 Pulse Ox 96 04/29/20 03:53 - Orders/Labs/Meds Orders: Active Orders 24 hr Category Date Time Status Peripheral IV Care [RC] . DIRECTED Care 04/29/20 04:11 Active UA W/MICROSCOPIC [URIN] Stat Lab 04/29/20 07:31 Ordered Lactated Ringers [Ringers, Lactated] 1,000 ml Med 04/29/20 07:35 Ordered IV .BOLUS Lactated Ringers [Ringers, Lactated] 1,000 ml Med 04/29/20 04:15 Active IV ASDIRECTED Sodium Chloride 0.9% [Saline Flush] Med 04/29/20 04:11 Active 10 ml FLUSH ASDIRECTED PRN ED Antiemetic Medication Reflex [OM.PC] Stat Oth 04/29/20 04:12 Ordered Peripheral IV Insertion Adult [OM.PC] Stat Oth 04/29/20 04:11 Ordered Labs: Laboratory Tests 04/29/20 04/29/20 04/29/20 Range/Units 04:20 04:20 04:20 WBC 5.55 (3.98-10.04) K/mm3 RBC 4.41 (3.98-5.22) M/mm3 Hgb 14.7 D (11.2-15.7) gm/dl Hct 42.8 (34.1-44.9) % MCV 97.1 H (79.4-94.8) fl MCH 33.3 H (25.6-32.2) pg MCHC 34.3 (32.2-35.5) g/dl RDW Std Deviation 50.3 H (36.4-46.3) fL Plt Count 104 L (182-369) K/mm3 MPV 10.3 (9.4-12.3) fl Neut % (Auto) 68.1 (34.0-71.1) % Lymph % (Auto) 9.5 L (19.3-51.7) % [place] % (Auto) 21.8 H (4.7-12.5) % Eos % (Auto) 0.2 L (0.7-5.8) Baso % (Auto) 0.4 (0.1-1.2) % Neut # (Auto) 3.78 (1.56-6.13) K/mm3 Lymph # (Auto) 0.53 L (1.18-3.74) K/mm3 [place] # (Auto) 1.21 H (0.24-0.36) K/mm3 Eos # (Auto) 0.01 L (0.04-0.36) K/mm3 Baso # (Auto) 0.02 (0.01-0.08) K/mm3 Manual Slide Review Abnormal smear PT 11.4 (9.7-12.0) SECONDS INR 1.07 APTT 25.3 (21.7-31.4) SECONDS Sodium 139 (136-145) mEq/L Potassium 3.5 (3.5-5.1) mEq/L Chloride 97 L (98-107) mEq/L Carbon Dioxide 24 (21-32) mEq/L Anion Gap 21.5 H (5-15) BUN 9 (7-18) mg/dL Creatinine 0.9 (0.55-1.02) mg/dL Est Cr Clr Drug Dosing 73.19 mL/min Estimated GFR (MDRD) > 60 (>60) mL/min BUN/Creatinine Ratio 10.0 L (14-18) Glucose 94 (74-106) mg/dL Lactic Acid (0.4-2.0) mmol/L Calcium 8.9 D (8.5-10.1) mg/dL Magnesium 1.4 L (1.8-2.4) mg/dl Total Bilirubin 2.0 H (0.2-1.0) mg/dL AST 268 H (15-37) U/L ALT 177 H (14-59) U/L Alkaline Phosphatase 86 (46-116) U/L Total Protein 7.1 (6.4-8.2) g/dl Albumin 4.0 (3.4-5.0) g/dl Globulin 3.1 gm/dL Albumin/Globulin Ratio 1.3 (1-2) Lipase 298 (73-393) U/L Free T4 (0.76-1.46) ng/dL HCG, Qual (NEGATIVE) Acetaminophen 0 L (10-30) ug/mL Ethyl Alcohol 0.00 (0.00) gm% SARS-CoV-2 RNA (ELMER) (NEGATIVE) 04/29/20 04/29/20 04/29/20 Range/Units 04:20 04:20 04:20 WBC (3.98-10.04) K/mm3 RBC (3.98-5.22) M/mm3 Hgb (11.2-15.7) gm/dl Hct (34.1-44.9) % MCV (79.4-94.8) fl MCH (25.6-32.2) pg MCHC (32.2-35.5) g/dl RDW Std Deviation (36.4-46.3) fL Plt Count (182-369) K/mm3 MPV (9.4-12.3) fl Neut % (Auto) (34.0-71.1) % Lymph % (Auto) (19.3-51.7) % [place] % (Auto) (4.7-12.5) % Eos % (Auto) (0.7-5.8) Baso % (Auto) (0.1-1.2) % Neut # (Auto) (1.56-6.13) K/mm3 Lymph # (Auto) (1.18-3.74) K/mm3 [place] # (Auto) (0.24-0.36) K/mm3 Eos # (Auto) (0.04-0.36) K/mm3 Baso # (Auto) (0.01-0.08) K/mm3 Manual Slide Review PT (9.7-12.0) SECONDS INR APTT (21.7-31.4) SECONDS Sodium (136-145) mEq/L Potassium (3.5-5.1) mEq/L Chloride (98-107) mEq/L Carbon Dioxide (21-32) mEq/L Anion Gap (5-15) BUN (7-18) mg/dL Creatinine (0.55-1.02) mg/dL Est Cr Clr Drug Dosing mL/min Estimated GFR (MDRD) (>60) mL/min BUN/Creatinine Ratio (14-18) Glucose (74-106) mg/dL Lactic Acid 1.2 (0.4-2.0) mmol/L Calcium (8.5-10.1) mg/dL Magnesium (1.8-2.4) mg/dl Total Bilirubin (0.2-1.0) mg/dL AST (15-37) U/L ALT (14-59) U/L Alkaline Phosphatase (46-116) U/L Total Protein (6.4-8.2) g/dl Albumin (3.4-5.0) g/dl Globulin gm/dL Albumin/Globulin Ratio (1-2) Lipase (73-393) U/L Free T4 0.81 (0.76-1.46) ng/dL HCG, Qual Negative (NEGATIVE) Acetaminophen (10-30) ug/mL Ethyl Alcohol (0.00) gm% SARS-CoV-2 RNA ([facility]MER) (NEGATIVE) 04/29/20 Range/Units 04:39 WBC (3.98-10.04) K/mm3 RBC (3.98-5.22) M/mm3 Hgb (11.2-15.7) gm/dl Hct (34.1-44.9) % MCV (79.4-94.8) fl MCH (25.6-32.2) pg MCHC (32.2-35.5) g/dl RDW Std Deviation (36.4-46.3) fL Plt Count (182-369) K/mm3 MPV (9.4-12.3) fl Neut % (Auto) (34.0-71.1) % Lymph % (Auto) (19.3-51.7) % [place] % (Auto) (4.7-12.5) % Eos % (Auto) (0.7-5.8) Baso % (Auto) (0.1-1.2) % Neut # (Auto) (1.56-6.13) K/mm3 Lymph # (Auto) (1.18-3.74) K/mm3 [place] # (Auto) (0.24-0.36) K/mm3 Eos # (Auto) (0.04-0.36) K/mm3 Baso # (Auto) (0.01-0.08) K/mm3 Manual Slide Review PT (9.7-12.0) SECONDS INR APTT (21.7-31.4) SECONDS Sodium (136-145) mEq/L Potassium (3.5-5.1) mEq/L Chloride (98-107) mEq/L Carbon Dioxide (21-32) mEq/L Anion Gap (5-15) BUN (7-18) mg/dL Creatinine (0.55-1.02) mg/dL Est Cr Clr Drug Dosing mL/min Estimated GFR (MDRD) (>60) mL/min BUN/Creatinine Ratio (14-18) Glucose (74-106) mg/dL Lactic Acid (0.4-2.0) mmol/L Calcium (8.5-10.1) mg/dL Magnesium (1.8-2.4) mg/dl Total Bilirubin (0.2-1.0) mg/dL AST (15-37) U/L ALT (14-59) U/L Alkaline Phosphatase (46-116) U/L Total Protein (6.4-8.2) g/dl Albumin (3.4-5.0) g/dl Globulin gm/dL Albumin/Globulin Ratio (1-2) Lipase (73-393) U/L Free T4 (0.76-1.46) ng/dL HCG, Qual (NEGATIVE) Acetaminophen (10-30) ug/mL Ethyl Alcohol (0.00) gm% SARS-CoV-2 RNA ([facility]) Negative (NEGATIVE) - Re-Assessments/Exams Free Text/Narrative Re-Assessment/Exam: 04/29/20 04:22 I ordered an IV LR 1L bolus, zofran 4mg IV, labs, UA and a CT of her abdomen and pelvis with IV but not oral contrast. 04/29/20 06:19 Her WBC was normal. Her platelets were low at 104. Her PT and PTT are normal. Her anion gap has improved from 25 to 21.5. Her magnesium is 1.4. Her total bili is 2. Her AST improved from 361 to 268. Her ALT has improved from 218 to 177. Her HCG is negative. Her UA was negative for UTI yesterday. Her T4 was normal. Her acetaminophen is 0 and ETOH is 0. Her CT shows moderate fatty infiltration of the liver. No definite evidence of acute abdominal or pelvic pathology. She did have more nausea and vomiting and I gave her reglan. She feels better now. I called Dr Vega our general surgeon marketing automation manager and he recommended an US and HIDA scan. I will see if I can get those 2 ordered. 04/29/20 06:57 I will give her another liter of fluid and give her some ice chips. It seams like the reglan did work better. I will give her a prescription for that and some magnesium. 04/29/20 07:36 I was going to discharge her but she is still nausea and tried some ice chips and water and it was not better. I feel she needs to be admitted. I called Dr Escobar and he agreed to the admission. Departure - Departure Time of Disposition: 08:00 Disposition: Home, Self-Care 01 Clinical Impression: Elevated liver enzymes, Hypomagnesemia Nausea & vomiting Qualifiers: Vomiting type: unspecified Vomiting Intractability: non-intractable Qualified Code(s): R11.2 - Nausea with vomiting, unspecified Abdominal pain Qualifiers: Abdominal location: upper abdomen, unspecified Qualified Code(s): R10.10 - Upper abdominal pain, unspecified - Discharge Information Prescriptions: Magnesium 200 mg PO DAILY #30 tablet Metoclopramide HCl [Reglan] 10 mg PO Q6HR PRN #20 tablet PRN Reason: Nausea/Vomiting Referrals: PCP,None [Primary Care Provider] - Francisca Toussaint PA-C [Ordering Only Provider] - 3 Days Forms: ED Department Discharge Additional Instructions: Drink plenty of fluids. Try the reglan for nausea and vomiting. I have ordered an ultrasound of you gallbladder and HIDA scan for your gallbladder. That will check if it is working properly. Someone from radiology will be calling you with a time and day to come in. Follow up with Francisca Toussaint for results. Please return if you are worse. Sepsis Event Note (ED) - Evaluation Sepsis Screening Result: No Definite Risk - Focused Exam Vital Signs: Vital Signs Temp Pulse Resp BP Pulse Ox 04/29/20 03:53 97.6 F 111 H 20 139/91 H 96 - My Orders Last 24 Hours: My Active Orders 04/29/20 04:11 Peripheral IV Care [RC] . DIRECTED Sodium Chloride 0.9% [Saline Flush] 10 ml FLUSH ASDIRECTED PRN Peripheral IV Insertion Adult [OM.PC] Stat 04/29/20 04:12 ED Antiemetic Medication Reflex [OM.PC] Stat 04/29/20 04:15 Lactated Ringers [Ringers, Lactated] 1,000 ml IV ASDIRECTED 04/29/20 07:31 UA W/MICROSCOPIC [URIN] Stat 04/29/20 07:35 Lactated Ringers [Ringers, Lactated] 1,000 ml IV .BOLUS - Assessment/Plan Last 24 Hours: My Active Orders 04/29/20 04:11 Peripheral IV Care [RC] . DIRECTED Sodium Chloride 0.9% [Saline Flush] 10 ml FLUSH ASDIRECTED PRN Peripheral IV Insertion Adult [OM.PC] Stat 04/29/20 04:12 ED Antiemetic Medication Reflex [OM.PC] Stat 04/29/20 04:15 Lactated Ringers [Ringers, Lactated] 1,000 ml IV ASDIRECTED 04/29/20 07:31 UA W/MICROSCOPIC [URIN] Stat 04/29/20 07:35 Lactated Ringers [Ringers, Lactated] 1,000 ml IV .BOLUS
[2020-04-29] MEDS ORDERED: Metoclopramide 10 MG/2 ML SDV IVPUSH ONE (04:44)
[2020-04-29] MEDS ORDERED: diphenhydrAMINE 50 MG/ML SDV IVPUSH ONE (04:44)
[2020-04-29 05:03] LABS: ACETAMINOPHEN 0 ug/mL (10-30)
[2020-04-29] MEDS ORDERED: Lactated Ringers 1,000 ML IV ONE ×2 (06:13→07:35)
--- NOTE | 2020-04-29 07:10 | CT ---
CT abdomen and pelvis Technique: Multiple axial sections were obtained from above the dome of the diaphragm inferiorly through the pubic symphysis. Intravenous contrast was utilized. No oral contrast was given. Delayed images were also obtained through the abdomen and pelvis. Reconstructed coronal and sagittal images were also obtained. Comparison: Visualized lung bases show nothing acute. Diffuse fatty infiltration is noted throughout the liver. No focal parenchymal abnormality is otherwise appreciated. Slight gallbladder wall thickening is seen within the distal esophagus raising the possibility of gastroesophageal reflux. Spleen size is normal. Adrenal glands show no nodule. Gallbladder contains no calcified gallstones. Kidneys show symmetric contrast enhancement. No hydronephrosis or mass is appreciated. Abdominal aorta shows no aneurysm. Pancreas appears within normal limits. No retroperitoneal adenopathy or mesenteric abnormalities are appreciated. Slight increased stool is seen throughout the colon. Appendix is seen which is normal in size. No pelvic mass or adenopathy is appreciated. Nabothian cysts are seen within the cervix. Small symmetric high density areas are seen within both fallopian tubes presumably due to prior sterilization surgery. Very minimal contrast is seen within the bladder on delayed images. Small amount of contrast is seen within the ureters. Bone window settings were reviewed which show no acute osseous finding. Small fat-containing umbilical hernia is noted. Impression: 1. Prominent fatty infiltration throughout the liver. 2. Possible mild gastroesophageal reflux. 3. Other nonacute findings as noted above. Diagnostic code #2 I agree with preliminary report from 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
--- NOTE | 2020-04-29 07:58 | PCM.HP.2 ---
H&P History of Present Illness - General Date of Service: 04/29/20 Source of Information: Patient, Old Records, Provider, RN, RN Notes Reviewed History Limitations: Reports: No Limitations - History of Present Illness Initial Comments - Free Text/Narative: This is a 39-year-old female who presents to our ED in the very tape weaver hours of 04/29/2220 with nausea and vomiting that has been ongoing for about a week. She was present in her ED the day prior for similar symptoms and was supposed to have an abdominal ultrasound obtained today. She has been unable to keep anything down and is very weak. She reports her has been caring around the house. She states in our ED on her prior visit she was given several liters of fluid and felt okay when she left but that night she started to vomit again and her weakness returned. No history of cholecystectomy or appendectomy. Liver enzymes were noted to be elevated yesterday. She reports she does not drink or utilize acetaminophen very often. Denies any fever, chills, cough, chest pain, shortness of breath, diarrhea, or urinary symptoms. She does have a history of hypothyroidism but is not been taking her levothyroxine because it makes her feel dizzy and because she has been vomiting. In the ED temperature was 97.6 Fahrenheit. Pulse 111. Respirations 20. Blood pressure 139/91. Pulse ox 96%. Labs were obtained showing no leukocytosis with a WBC of 5.55. Hemoglobin is 14.7. She is macrocytic. Platelets are 104,000. Neutrophils are normal at 3.78. INR is 1.07. Sodium is 139. Potassium is on the low end of normal at 3.5. Chloride is 97. Carbon dioxide 24. Anion gap is very high at 21.5. BUN is 9. Creatinine 0.9. GFR greater than 60. Glucose is 94. Calcium is 8.9. Magnesium 1.4. Bilirubin 2.0. AST is 260, ALT 177, alkaline phosphatase 86. Protein 7.1. Albumin 4.0. H CG qualitative is negative. Acetaminophen is 0. Ethyl alcohol is 0. Lactic acid is 1.2. Free T4 is 0.81. SARS-CoV-[address] scan of her abdomen and pelvis is obtained showing prominent fatty infiltration throughout the liver and mild gerardo roesophageal reflux but nothing acute. She is given several liters of IV fluid, Reglan, and 1 g of IV magnesium. Plan was to discharge her but she continued to have nausea difficulty with ambulation. Decision is made to admit her observation status due to her continued nausea, vomiting, and weakness. 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 She was never a smoker. PCP is Yolande Ferreira NP. Left Abdomen Pain Score (Numeric/FACES): 5 - Related Data Allergies/Adverse Reactions: Allergies Allergy/AdvReac Type Severity Reaction Status Date / Time No Known Allergies Allergy Verified 04/29/20 08:45 Home Medications: Home Meds Albuterol Sulfate [Albuterol Sulfate Hfa] 1 puff INH ASDIRECTED 11/23/19 [History] Levothyroxine Sodium [Synthroid] 100 mcg PO DAILY 11/23/19 [History] Ondansetron [Zofran ODT] 4 mg PO Q6H PRN #20 tab.dis 11/23/19 [Rx] Fluticasone Propionate [Flovent HFA] 1 puff INH DAILY 04/29/20 [History] Magnesium 200 mg PO DAILY #30 tablet 04/29/20 [Rx] Metoclopramide HCl [Reglan] 10 mg PO Q6HR PRN #20 tablet 04/29/20 [Rx] Past Medical History Cardiovascular History: Reports: Syncope Respiratory History: Reports: Asthma MANUAL WINDER History: Reports: Endocrine/Metabolic History: Reports: Hypothyroidism Other Endocrine/Metabolic History: Patient has been diagnosed with Naun's thyroiditis and her TSH values and thyroid replacement hormone have been very difficult to treat due to the values playing a roller coaster. - Infectious Disease History Infectious Disease History: Reports: Chicken Pox - Past Surgical History Female Surgical History: Reports: Tubal Ligation Social & Family History - Tobacco Use Tobacco Use Status *Q: Never Tobacco User Second Hand Smoke Exposure: No - Caffeine Use Caffeine Use: Reports: None - Recreational Drug Use Recreational Drug Use: No - Living Situation & Occupation Living situation: Reports: Occupation: Unemployed H&P Review of Systems - Review of Systems: Review Of Systems: See Below General: Reports: No Symptoms, Malaise, Weakness, Fatigue, Decreased Appetite. Denies: Fever, Chills HEENT: Reports: No Symptoms. Denies: Headaches, Sore Throat Pulmonary: Reports: No Symptoms. Denies: Shortness of Breath, Wheezing, Pleuritic Chest Pain, Cough, Sputum Cardiovascular: Reports: No Symptoms. Denies: Chest Pain, Palpitations, Dyspnea on Exertion, Edema Gastrointestinal: Reports: Abdominal Pain (LUQ and epigastric ), Anorexia, Nausea, Vomiting. Denies: Constipation, Diarrhea, Hematemesis Genitourinary: Reports: No Symptoms. Denies: Pain Musculoskeletal: Reports: No Symptoms Skin: Reports: No Symptoms. Denies: Cyanosis Psychiatric: Reports: No Symptoms. Denies: Confusion Neurological: Reports: Difficulty Walking, Weakness, Gait Disturbance. Denies: Confusion, Pre-Existing Deficit Hematologic/Lymphatic: Reports: No Symptoms Immunologic: Reports: No Symptoms Exam - Exam Exam: See Below - Vital Signs Vital Signs: Last Vital Signs Temp 97.6 F 04/29/20 03:53 Pulse 111 H 04/29/20 03:53 Resp 20 04/29/20 03:53 BP 139/91 H 04/29/20 03:53 Pulse Ox 96 04/29/20 03:53 Weight: 154 lb 14.4 oz - Exam Quality Assessment: DVT Prophylaxis. No: Supplemental Oxygen, Urinary Catheter General: Alert, Oriented, Cooperative, Mild Distress (Looks uncomfortable ) HEENT: Conjunctiva Clear, EACs Clear, Posterior Pharynx Clear. No: Mucosa Moist & [place] (Dry) Neck: Supple, Trachea Midline Lungs: Clear to Auscultation, Normal Respiratory Effort Cardiovascular: Regular Rate, Regular Rhythm GI/Abdominal Exam: Soft, No Distention, Tender (LQU>Epigastric ), Abnormal Bowel Sounds (Hyperactive ). No: Rigid, Rebound (Female) Exam: Deferred Rectal (Female) Exam: Deferred Back Exam: Normal Inspection, Full Range of Motion Extremities: Normal Inspection, Normal Range of Motion, Non-Tender, No Pedal Edema, Normal Capillary Refill Peripheral Pulses: 3+: Radial (L), Radial (R), Dorsalis Pedis (L), Dorsalis Pedis (R) Skin: Warm, Dry, Intact Neurological: Cranial Nerves Intact (Grossly ) Neuro Extensive - Mental Status: Alert, Oriented x3, Normal Mood/Affect - Patient Data Lab Results Last 24 hrs: Laboratory Results - last 24 hr 04/29/20 04/29/20 04/29/20 Range/Units 04:20 04:20 04:20 WBC 5.55 (3.98-10.04) K/mm3 RBC 4.41 (3.98-5.22) M/mm3 Hgb 14.7 D (11.2-15.7) gm/dl Hct 42.8 (34.1-44.9) % MCV 97.1 H (79.4-94.8) fl MCH 33.3 H (25.6-32.2) pg MCHC 34.3 (32.2-35.5) g/dl RDW Std Deviation 50.3 H (36.4-46.3) fL Plt Count 104 L (182-369) K/mm3 MPV 10.3 (9.4-12.3) fl Neut % (Auto) 68.1 (34.0-71.1) % Lymph % (Auto) 9.5 L (19.3-51.7) % Gilchrist % (Auto) 21.8 H (4.7-12.5) % Eos % (Auto) 0.2 L (0.7-5.8) Baso % (Auto) 0.4 (0.1-1.2) % Neut # (Auto) 3.78 (1.56-6.13) K/mm3 Lymph # (Auto) 0.53 L (1.18-3.74) K/mm3 Gilchrist # (Auto) 1.21 H (0.24-0.36) K/mm3 Eos # (Auto) 0.01 L (0.04-0.36) K/mm3 Baso # (Auto) 0.02 (0.01-0.08) K/mm3 Manual Slide Review Abnormal smear PT 11.4 (9.7-12.0) SECONDS INR 1.07 APTT 25.3 (21.7-31.4) SECONDS Sodium 139 (136-145) mEq/L Potassium 3.5 (3.5-5.1) mEq/L Chloride 97 L (98-107) mEq/L Carbon Dioxide 24 (21-32) mEq/L Anion Gap 21.5 H (5-15) BUN 9 (7-18) mg/dL Creatinine 0.9 (0.55-1.02) mg/dL Est Cr Clr Drug Dosing 73.19 mL/min Estimated GFR (MDRD) > 60 (>60) mL/min BUN/Creatinine Ratio 10.0 L (14-18) Glucose 94 (74-106) mg/dL Lactic Acid (0.4-2.0) mmol/L Calcium 8.9 D (8.5-10.1) mg/dL Magnesium 1.4 L (1.8-2.4) mg/dl Total Bilirubin 2.0 H (0.2-1.0) mg/dL AST 268 H (15-37) U/L ALT 177 H (14-59) U/L Alkaline Phosphatase 86 (46-116) U/L Total Protein 7.1 (6.4-8.2) g/dl Albumin 4.0 (3.4-5.0) g/dl Globulin 3.1 gm/dL Albumin/Globulin Ratio 1.3 (1-2) Lipase 298 (73-393) U/L Free T4 (0.76-1.46) ng/dL HCG, Qual (NEGATIVE) Urine Color (Yellow) Urine Appearance (Clear) Urine pH (5.0-8.0) Ur Specific [place] (1.005-1.030) Urine Protein (Negative) Urine Glucose (UA) (Negative) Urine Ketones (Negative) Urine Occult Blood (Negative) Urine Nitrite (Negative) Urine Bilirubin (Negative) Urine Urobilinogen (0.2-1.0) Ur Leukocyte Esterase (Negative) Urine RBC (0-5) /hpf Urine WBC (0-5) /hpf Ur Squamous Epith Cells (0-5) /hpf Urine Bacteria (FEW) /hpf Urine Mucus (FEW) /hpf Acetaminophen 0 L (10-30) ug/mL Ethyl Alcohol 0.00 (0.00) gm% SARS-CoV-2 RNA (ELMER) (NEGATIVE) 04/29/20 04/29/20 04/29/20 Range/Units 04:20 04:20 04:20 WBC (3.98-10.04) K/mm3 RBC (3.98-5.22) M/mm3 Hgb (11.2-15.7) gm/dl Hct (34.1-44.9) % MCV (79.4-94.8) fl MCH (25.6-32.2) pg MCHC (32.2-35.5) g/dl RDW Std Deviation (36.4-46.3) fL Plt Count (182-369) K/mm3 MPV (9.4-12.3) fl Neut % (Auto) (34.0-71.1) % Lymph % (Auto) (19.3-51.7) % Gilchrist % (Auto) (4.7-12.5) % Eos % (Auto) (0.7-5.8) Baso % (Auto) (0.1-1.2) % Neut # (Auto) (1.56-6.13) K/mm3 Lymph # (Auto) (1.18-3.74) K/mm3 [place]christ # (Auto) (0.24-0.36) K/mm3 Eos # (Auto) (0.04-0.36) K/mm3 Baso # (Auto) (0.01-0.08) K/mm3 Manual Slide Review PT (9.7-12.0) SECONDS INR APTT (21.7-31.4) SECONDS Sodium (136-145) mEq/L Potassium (3.5-5.1) mEq/L Chloride (98-107) mEq/L Carbon Dioxide (21-32) mEq/L Anion Gap (5-15) BUN (7-18) mg/dL Creatinine (0.55-1.02) mg/dL Est Cr Clr Drug Dosing mL/min Estimated GFR (MDRD) (>60) mL/min BUN/Creatinine Ratio (14-18) Glucose (74-106) mg/dL Lactic Acid 1.2 (0.4-2.0) mmol/L Calcium (8.5-10.1) mg/dL Magnesium (1.8-2.4) mg/dl Total Bilirubin (0.2-1.0) mg/dL AST (15-37) U/L ALT (14-59) U/L Alkaline Phosphatase (46-116) U/L Total Protein (6.4-8.2) g/dl Albumin (3.4-5.0) g/dl Globulin gm/dL Albumin/Globulin Ratio (1-2) Lipase (73-393) U/L Free T4 0.81 (0.76-1.46) ng/dL HCG, Qual Negative (NEGATIVE) Urine Color (Yellow) Urine Appearance (Clear) Urine pH (5.0-8.0) Ur Specific [place] (1.005-1.030) Urine Protein (Negative) Urine Glucose (UA) (Negative) Urine Ketones (Negative) Urine Occult Blood (Negative) Urine Nitrite (Negative) Urine Bilirubin (Negative) Urine Urobilinogen (0.2-1.0) Ur Leukocyte Esterase (Negative) Urine RBC (0-5) /hpf Urine WBC (0-5) /hpf Ur Squamous Epith Cells (0-5) /hpf Urine Bacteria (FEW) /hpf Urine Mucus (FEW) /hpf Acetaminophen (10-30) ug/mL Ethyl Alcohol (0.00) gm% SARS-CoV-2 RNA (ELMER) (NEGATIVE) 04/29/20 04/29/20 Range/Units 04:39 07:31 WBC (3.98-10.04) K/mm3 RBC (3.98-5.22) M/mm3 Hgb (11.2-15.7) gm/dl Hct (34.1-44.9) % MCV (79.4-94.8) fl MCH (25.6-32.2) pg MCHC (32.2-35.5) g/dl RDW Std Deviation (36.4-46.3) fL Plt Count (182-369) K/mm3 MPV (9.4-12.3) fl Neut % (Auto) (34.0-71.1) % Lymph % (Auto) (19.3-51.7) % [place] % (Auto) (4.7-12.5) % Eos % (Auto) (0.7-5.8) Baso % (Auto) (0.1-1.2) % Neut # (Auto) (1.56-6.13) K/mm3 Lymph # (Auto) (1.18-3.74) K/mm3 [place] # (Auto) (0.24-0.36) K/mm3 Eos # (Auto) (0.04-0.36) K/mm3 Baso # (Auto) (0.01-0.08) K/mm3 Manual Slide Review PT (9.7-12.0) SECONDS INR APTT (21.7-31.4) SECONDS Sodium (136-145) mEq/L Potassium (3.5-5.1) mEq/L Chloride (98-107) mEq/L Carbon Dioxide (21-32) mEq/L Anion Gap (5-15) BUN (7-18) mg/dL Creatinine (0.55-1.02) mg/dL Est Cr Clr Drug Dosing mL/min Estimated GFR (MDRD) (>60) mL/min BUN/Creatinine Ratio (14-18) Glucose (74-106) mg/dL Lactic Acid (0.4-2.0) mmol/L Calcium (8.5-10.1) mg/dL Magnesium (1.8-2.4) mg/dl Total Bilirubin (0.2-1.0) mg/dL AST (15-37) U/L ALT (14-59) U/L Alkaline Phosphatase (46-116) U/L Total Protein (6.4-8.2) g/dl Albumin (3.4-5.0) g/dl Globulin gm/dL Albumin/Globulin Ratio (1-2) Lipase (73-393) U/L Free T4 (0.76-1.46) ng/dL HCG, Qual (NEGATIVE) Urine Color Dark yellow (Yellow) Urine Appearance Clear (Clear) Urine pH 6.0 (5.0-8.0) Ur Specific [place] 1.010 (1.005-1.030) Urine Protein 1+ H (Negative) Urine Glucose (UA) Negative (Negative) Urine Ketones 4+ H (Negative) Urine Occult Blood 3+ H (Negative) Urine Nitrite Negative (Negative) Urine Bilirubin 2+ H (Negative) Urine Urobilinogen 1.0 (0.2-1.0) Ur Leukocyte Esterase Negative (Negative) Urine RBC 10-20 H (0-5) /hpf Urine WBC 0-5 (0-5) /hpf Ur Squamous Epith Cells 5-10 H (0-5) /hpf Urine Bacteria Few (FEW) /hpf Urine Mucus Few (FEW) /hpf Acetaminophen (10-30) ug/mL Ethyl Alcohol (0.00) gm% SARS-CoV-2 RNA (ELMER) Negative (NEGATIVE) Result Diagrams: 04/29/20 04:20 04/29/20 04:20 Sepsis Event Note - Evaluation Sepsis Screening Result: No Definite Risk - Focused Exam Vital Signs: Vital Signs Temp Pulse Resp BP Pulse Ox 04/29/20 03:53 97.6 F 111 H 20 139/91 H 96 - Problem List (1) History of Naun thyroiditis SNOMED Code(s): 830645416 ICD Code: Z86.39 - PERSONAL HISTORY OF ENDO, NUTRITIONAL AND METABOLIC DISEASE Status: Chronic Priority: Medium Current Visit: Yes (2) Asthma SNOMED Code(s): 929654966 ICD Code: J45.909 - UNSPECIFIED ASTHMA, UNCOMPLICATED Status: Chronic Priority: Low Current Visit: No Qualifiers: Asthma severity: unspecified severity Asthma persistence: unspecified Asthma complication type: unspecified Qualified Code(s): J45.909 - Unspecified asthma, uncomplicated (3) Generalized weakness SNOMED Code(s): 16440549 ICD Code: R53.1 - WEAKNESS Status: Acute Priority: High Current Visit: Yes (4) Abdominal pain SNOMED Code(s): 92801780 ICD Code: R10.9 - UNSPECIFIED ABDOMINAL PAIN Status: Acute Priority: High Current Visit: Yes Qualifiers: Abdominal location: upper abdomen, unspecified Qualified Code(s): R10.10 - Upper abdominal pain, unspecified (5) Elevated liver enzymes SNOMED Code(s): 998121233 ICD Code: R74.8 - ABNORMAL LEVELS OF OTHER SERUM ENZYMES Status: Acute Priority: High Current Visit: Yes (6) Hypomagnesemia SNOMED Code(s): 395122056 ICD Code: E83.42 - HYPOMAGNESEMIA Status: Acute Priority: High Current Visit: Yes (7) Nausea & vomiting SNOMED Code(s): 27097535 ICD Code: R11.2 - NAUSEA WITH VOMITING, UNSPECIFIED Status: Acute Priority: High Current Visit: Yes Qualifiers: Vomiting type: unspecified Vomiting Intractability: non-intractable Qualified Code(s): R11.2 - Nausea with vomiting, unspecified (8) Dehydration SNOMED Code(s): 23332095 ICD Code: E86.0 - DEHYDRATION Status: Acute Priority: High Current Visit: Yes (9) Hypothyroidism SNOMED Code(s): 79002536 ICD Code: E03.9 - HYPOTHYROIDISM, UNSPECIFIED Status: Chronic Priority: High Current Visit: Yes Qualifiers: Hypothyroidism type: unspecified Qualified Code(s): E03.9 - Hypothyroidism, unspecified (10) Failure of outpatient treatment SNOMED Code(s): 400991164 ICD Code: Z78.9 - OTHER SPECIFIED HEALTH STATUS Status: Acute Priority: High Current Visit: Yes Problem List Initiated/Reviewed/Updated: Yes Orders Last 24hrs: Active Orders 24 hr Category Date Time Status Peripheral IV Care [RC] . DIRECTED Care 04/29/20 04:11 Active Lactated Ringers [Ringers, Lactated] 1,000 ml Med 04/29/20 07:35 Active IV .BOLUS Lactated Ringers [Ringers, Lactated] 1,000 ml Med 04/29/20 04:15 Active IV ASDIRECTED Sodium Chloride 0.9% [Saline Flush] Med 04/29/20 04:11 Active 10 ml FLUSH ASDIRECTED PRN ED Antiemetic Medication Reflex [OM.PC] Stat Oth 04/29/20 04:12 Ordered Peripheral IV Insertion Adult [OM.PC] Stat Oth 04/29/20 04:11 Ordered Assessment/Plan Comment:: Assessment - day of admission - 04/29/20 * 9-year-old female presents to ED with nausea and vomiting that is been ongoing for about a week. * Was seen in the ED on 04/28/20 and symptoms have continued * Was scheduled to have abdominal ultrasound today, but return to ED after being unable to keep anything down. * has had to carry her around the house. * No prior cholecystectomy or appendectomy. Does not drink and rarely utilizes acetaminophen. * Labs in ED: * WBC 5.55 * Hemoglobin 14.7 * Platelet 104 * Neutrophil 3.78 * INR 1.07 * Sodium 139 * Potassium 3.9 * Chloride 97 * Anion gap 21.5 * BUN 9, creatinine 0.9, GFR greater than 60 * Glucose 94 * Bilirubin 2.0 * AST 268, ALT 177, alkaline phosphatase 86 * Albumin 4.0 * Lipase 298 * Lactic acid 1.2 * Free T4 0.81 * Qualitative hCG negative * Ethyl alcohol negative * Acetaminophen negative * SARS-CoV-2 RNA screen negative * CT abdomen and pelvis obtained in ED shows fatty liver and possible mild GERD. Other nonacute findings. * Given 3 L IV fluid boluses along with antiemetics and 1 g magnesium. * Plan was to discharge patient however she remained weak and nauseated. Patient admitted observation status for management of her nausea, vomiting, de hydration, and further work-up for transaminitis. * Labs on floor: * TSH 14.622 * UA negative however 1+ protein, 4+ ketones, 3+ occult blood, 2+ bilirubin, 10-20 urine RBCs and 5-10 squamous epithelial cells noted. * Hepatitis B antigen nonreactive * Hepatitis C antibody negative * Gilchrist screen negative * Hepatitis panel pending * Abdominal ultrasound obtained on floor shows prominent fatty infiltration within the liver but no additional abnormality. PLAN: Nausea & vomiting Dehydration Abdominal pain Elevated liver enzymes Hypomagnesemia Generalized weakness Failure of outpatient treatment * IV fluids as ordered * Clear liquid diet for now * HIDA scan in AM * Repeat daily labs * Supplement additional 1gm magnesium * Up with assistance in room * Start Protonix after HIDA scan * Scopolamine patch * PRN antiemetics as ordered * Hepatitis panel pending Hypothyroidism History of Naun thyroiditis Asthma * Resume home levothyroxine * Resume PRN albuterol inhaler * Monitor for respiratory symptoms Code status: Full PCP: Yolande Ferreira NP DVT prophylaxis: VTE score of 1 - not indicated Disposition: Admitted to medical floor observation status for management of GEN vomiting, generalized weakness, abdominal pain, and further work-up for transaminitis. Will upgrade to inpatient status. Anticipated LOS 3-4 days. - Mortality Measure Prognosis:: Good
[2020-04-29] MEDS ORDERED: HYDROmorphone 0.5 MG/0.5 ML Syringe IVPUSH PRN (08:13)
[2020-04-29] MEDS ORDERED: Ondansetron 4 MG/2 ML SDV IV PRN (08:13)
[2020-04-29] MEDS ORDERED: oxyCODONE 5 MG Tab PO PRN (08:13)
[2020-04-29] MEDS ORDERED: FLU VACC QS2020-21(6MOS UP)/PF 60 MCG/0.5 ML SYRINGE IM ONE (09:15)
--- NOTE | 2020-04-29 10:13 | US ---
Limited abdominal ultrasound: Multiple real-time images of the upper right abdomen were obtained. Comparison: Prior CT abdomen and pelvis exam done 04/29/20, 5:02 AM. Findings: Liver is very echogenic as compared to the kidney compatible with prominent fatty infiltration. No discrete focal parenchymal abnormality is otherwise seen. No biliary duct dilatation is seen. Gallbladder contains no shadowing gallstones. No gallbladder wall thickening is seen. Visualized portions of the pancreas are within normal limits. Right kidney shows no hydronephrosis or mass. Right kidney has a length of 10.1 cm. Inferior vena cava is patent. Main portal vein shows normal hepatopedal flow. Proximal aorta shows no aneurysm. Impression: 1. Prominent fatty infiltration within the liver. 2. No additional abnormality is appreciated on right upper quadrant abdominal ultrasound. Diagnostic code #2
[2020-04-29] MEDS ORDERED: Pantoprazole 40 MG Vial IVPUSH ONE (12:00)
[2020-04-29] MEDS ORDERED: Albuterol 6.7 GM Inhaler INH PRN (12:00)
[2020-04-29] MEDS: Levothyroxine 100 MCG Tab PO SCH (12:44)
[2020-04-29] MEDS ORDERED: Scopolamine 1.5 MG Transdermal Patch TRDERM SCH (13:00)
[2020-04-29] MEDS: Dextrose 5%-Lact Ringers w/KCl 1,000 ML IV SCH ×2 (13:39→23:20)
--- NOTE | 2020-04-30 08:50 | PCM.PN ---
- General Info Date of Service: 04/30/20 Subjective Update: In to see Fiona. She is up ambulating around the room. Her HIDA scan today was negative. Her AST and ALT have increased however her bilirubin has decreased slightly. Still no white count. Still no obvious reason for her transaminitis. Denies any nausea and has not vomited since yesterday. She has ate a meal with no issues. Discussed with Dr. Guadalupe, attending hospitalist and she agrees it would be in the best interest of the patient to stay 1 more day to allow for supplementation of her potassium and also recheck of her lab draws. Regardless she will need to follow-up with her primary care provider and GI after discharge. Likely discharge tomorrow pending continued stability/improvement. Functional Status: Reports: Pain Controlled, Tolerating Diet, Ambulating, Urinating. Denies: New Symptoms - Review of Systems General: Reports: Weakness (improving ). Denies: Fever, Fatigue, Malaise, Chills HEENT: Reports: No Symptoms. Denies: Headaches, Visual Changes Pulmonary: Reports: No Symptoms. Denies: Shortness of Breath, Pleuritic Chest Pain, Cough, Sputum, Wheezing Cardiovascular: Reports: No Symptoms. Denies: Chest Pain, Palpitations, Dyspnea on Exertion, Edema Gastrointestinal: Reports: No Symptoms. Denies: Abdominal Pain, Constipation, Decreased Appetite, Diarrhea, Difficulty Swallowing, Nausea, Vomiting Genitourinary: Reports: No Symptoms. Denies: Pain Musculoskeletal: Reports: No Symptoms Skin: Reports: No Symptoms. Denies: Cyanosis Neurological: Reports: No Symptoms. Denies: Confusion, Difficulty Walking, Gait Disturbance Psychiatric: Reports: No Symptoms. Denies: Confusion - Patient Data Vitals - Most Recent: Last Vital Signs Temp 97.9 F 04/30/20 03:07 Pulse 73 04/30/20 03:07 Resp 12 04/30/20 03:07 BP 133/80 04/30/20 03:07 Pulse Ox 98 04/30/20 03:07 Weight - Most Recent: 156 lb 14.4 oz I&O - Last 24 Hours: Intake & Output 04/29/20 04/30/20 04/30/20 22:59 06:59 14:59 Intake Total 1490 900 Output Total 1800 Balance 1490 -900 Lab Results Last 24 Hours: Laboratory Results - last 24 hr 04/29/20 04/29/20 04/29/20 Range/Units 04:20 04:20 04:20 WBC (3.98-10.04) K/mm3 RBC (3.98-5.22) M/mm3 Hgb (11.2-15.7) gm/dl Hct (34.1-44.9) % MCV (79.4-94.8) fl MCH (25.6-32.2) pg MCHC (32.2-35.5) g/dl RDW Std Deviation (36.4-46.3) fL Plt Count (182-369) K/mm3 MPV (9.4-12.3) fl Neut % (Auto) (34.0-71.1) % Lymph % (Auto) (19.3-51.7) % Pepin % (Auto) (4.7-12.5) % Eos % (Auto) (0.7-5.8) Baso % (Auto) (0.1-1.2) % Neut # (Auto) (1.56-6.13) K/mm3 Lymph # (Auto) (1.18-3.74) K/mm3 Pepin # (Auto) (0.24-0.36) K/mm3 Eos # (Auto) (0.04-0.36) K/mm3 Baso # (Auto) (0.01-0.08) K/mm3 Manual Slide Review Sodium (136-145) mEq/L Potassium (3.5-5.1) mEq/L Chloride (98-107) mEq/L Carbon Dioxide (21-32) mEq/L Anion Gap (5-15) BUN (7-18) mg/dL Creatinine (0.55-1.02) mg/dL Est Cr Clr Drug Dosing mL/min Estimated GFR (MDRD) (>60) mL/min BUN/Creatinine Ratio (14-18) Glucose (74-106) mg/dL Calcium (8.5-10.1) mg/dL Magnesium (1.8-2.4) mg/dl Total Bilirubin (0.2-1.0) mg/dL AST (15-37) U/L ALT (14-59) U/L Alkaline Phosphatase (46-116) U/L Total Protein (6.4-8.2) g/dl Albumin (3.4-5.0) g/dl Globulin gm/dL Albumin/Globulin Ratio (1-2) TSH 3rd Generation 14.622 H (0.358-3.74) uIU/mL Urine Opiates Screen (BZUTNJ=537) Ur Buprenorphine Scrn (CUTOFF=10) Ur Oxycodone Screen (XJR6XV=902) Urine Methadone Screen (JLDLAV=156) Ur Propoxyphene Screen (FPBNLQ=714) Ur Barbiturates Screen (VKQCOA=147) Ur Tricyclics Screen (LGWEMI=459) Ur Phencyclidine Scrn (CUTOFF=25) Ur Amphetamine Screen (DZRMHA=381) U Methamphetamines Scrn (NCOFQH=290) U Benzodiazepines Scrn (JVXWAG=100) U Cocaine Metab Screen (NCUEJC=330) U Marijuana (THC) Screen (CUTOFF=50) Hep Bs Antigen Nonreactive (NONREACTIVE) Hepatitis C Antibody Negative (NEGATIVE) Monoscreen Negative (NEGATIVE) 04/29/20 04/30/20 04/30/20 Range/Units 07:35 04:56 04:56 WBC 3.33 L (3.98-10.04) K/mm3 RBC 3.94 L (3.98-5.22) M/mm3 Hgb 13.0 D (11.2-15.7) gm/dl Hct 38.7 (34.1-44.9) % MCV 98.2 H (79.4-94.8) fl MCH 33.0 H (25.6-32.2) pg MCHC 33.6 (32.2-35.5) g/dl RDW Std Deviation 49.3 H (36.4-46.3) fL Plt Count 67 L (182-369) K/mm3 MPV 11.0 (9.4-12.3) fl Neut % (Auto) 61.0 (34.0-71.1) % Lymph % (Auto) 24.0 (19.3-51.7) % Pepin % (Auto) 12.6 H (4.7-12.5) % Eos % (Auto) 1.8 (0.7-5.8) Baso % (Auto) 0.3 (0.1-1.2) % Neut # (Auto) 2.03 (1.56-6.13) K/mm3 Lymph # (Auto) 0.80 L (1.18-3.74) K/mm3 Pepin # (Auto) 0.42 H (0.24-0.36) K/mm3 Eos # (Auto) 0.06 (0.04-0.36) K/mm3 Baso # (Auto) 0.01 (0.01-0.08) K/mm3 Manual Slide Review Abnormal smear Sodium 141 (136-145) mEq/L Potassium 3.3 L (3.5-5.1) mEq/L Chloride 104 (98-107) mEq/L Carbon Dioxide 27 (21-32) mEq/L Anion Gap 13.3 (5-15) BUN 5 L (7-18) mg/dL Creatinine 0.8 (0.55-1.02) mg/dL Est Cr Clr Drug Dosing 82.33 mL/min Estimated GFR (MDRD) > 60 (>60) mL/min BUN/Creatinine Ratio 6.3 L (14-18) Glucose 97 (74-106) mg/dL Calcium 8.2 L (8.5-10.1) mg/dL Magnesium 1.9 (1.8-2.4) mg/dl Total Bilirubin 1.9 H (0.2-1.0) mg/dL AST 377 H (15-37) U/L ALT 179 H (14-59) U/L Alkaline Phosphatase 65 (46-116) U/L Total Protein 5.7 L (6.4-8.2) g/dl Albumin 3.2 L (3.4-5.0) g/dl Globulin 2.5 gm/dL Albumin/Globulin Ratio 1.3 (1-2) TSH 3rd Generation (0.358-3.74) uIU/mL Urine Opiates Screen Negative (SJZJLM=383) Ur Buprenorphine Scrn Negative (CUTOFF=10) Ur Oxycodone Screen Negative (QSI3NU=796) Urine Methadone Screen Negative (FNXMDN=307) Ur Propoxyphene Screen Negative (YLDFZO=906) Ur Barbiturates Screen Negative (YMQYXD=319) Ur Tricyclics Screen Negative (SJJZPW=919) Ur Phencyclidine Scrn Negative (CUTOFF=25) Ur Amphetamine Screen Negative (QTZRCY=223) U Methamphetamines Scrn Negative (WLCKAW=754) U Benzodiazepines Scrn Negative (JTVQWO=764) U Cocaine Metab Screen Negative (MITGFY=839) U Marijuana (THC) Screen Negative (CUTOFF=50) Hep Bs Antigen (NONREACTIVE) Hepatitis C Antibody (NEGATIVE) Monoscreen (NEGATIVE) - Exam Quality Assessment: No: Supplemental Oxygen, DVT Prophylaxis (Not indicated ) General: Alert, Oriented, Cooperative, No Acute Distress HEENT: Pupils Equal, Pupils Reactive, Mucous Membr. Moist/[place] Neck: Supple, Trachea Midline Lungs: Clear to Auscultation, Normal Respiratory Effort Cardiovascular: Regular Rate, Regular Rhythm GI/Abdominal Exam: Normal Bowel Sounds, Soft, Non-Tender, No Distention (Female) Exam: Deferred Back Exam: Normal Inspection, Full Range of Motion Extremities: Normal Inspection, Normal Range of Motion, Non-Tender, No Pedal Edema, Normal Capillary Refill Skin: Warm, Dry, Intact Neurological: No New Focal Deficit Psy/Mental Status: Alert, Normal Affect, Normal Mood - Patient Data Lab Results Last 24 hrs: Laboratory Results - last 24 hr 04/29/20 04/29/20 04/29/20 Range/Units 04:20 04:20 04:20 WBC (3.98-10.04) K/mm3 RBC (3.98-5.22) M/mm3 Hgb (11.2-15.7) gm/dl Hct (34.1-44.9) % MCV (79.4-94.8) fl MCH (25.6-32.2) pg MCHC (32.2-35.5) g/dl RDW Std Deviation (36.4-46.3) fL Plt Count (182-369) K/mm3 MPV (9.4-12.3) fl Neut % (Auto) (34.0-71.1) % Lymph % (Auto) (19.3-51.7) % Pepin % (Auto) (4.7-12.5) % Eos % (Auto) (0.7-5.8) Baso % (Auto) (0.1-1.2) % Neut # (Auto) (1.56-6.13) K/mm3 Lymph # (Auto) (1.18-3.74) K/mm3 Pepin # (Auto) (0.24-0.36) K/mm3 Eos # (Auto) (0.04-0.36) K/mm3 Baso # (Auto) (0.01-0.08) K/mm3 Manual Slide Review Sodium (136-145) mEq/L Potassium (3.5-5.1) mEq/L Chloride (98-107) mEq/L Carbon Dioxide (21-32) mEq/L Anion Gap (5-15) BUN (7-18) mg/dL Creatinine (0.55-1.02) mg/dL Est Cr Clr Drug Dosing mL/min Estimated GFR (MDRD) (>60) mL/min BUN/Creatinine Ratio (14-18) Glucose (74-106) mg/dL Calcium (8.5-10.1) mg/dL Magnesium (1.8-2.4) mg/dl Total Bilirubin (0.2-1.0) mg/dL AST (15-37) U/L ALT (14-59) U/L Alkaline Phosphatase (46-116) U/L Total Protein (6.4-8.2) g/dl Albumin (3.4-5.0) g/dl Globulin gm/dL Albumin/Globulin Ratio (1-2) TSH 3rd Generation 14.622 H (0.358-3.74) uIU/mL Urine Opiates Screen (MXMWYH=430) Ur Buprenorphine Scrn (CUTOFF=10) Ur Oxycodone Screen (JAM3PP=663) Urine Methadone Screen (TQPGWN=976) Ur Propoxyphene Screen (DJDMJO=670) Ur Barbiturates Screen (ERSPPM=177) Ur Tricyclics Screen (UYPCVG=266) Ur Phencyclidine Scrn (CUTOFF=25) Ur Amphetamine Screen (XDDNSJ=729) U Methamphetamines Scrn (NGUBBK=505) U Benzodiazepines Scrn (WODNEJ=483) U Cocaine Metab Screen (CZTXGD=872) U Marijuana (THC) Screen (CUTOFF=50) Hep Bs Antigen Nonreactive (NONREACTIVE) Hepatitis C Antibody Negative (NEGATIVE) Monoscreen Negative (NEGATIVE) 04/29/20 04/30/20 04/30/20 Range/Units 07:35 04:56 04:56 WBC 3.33 L (3.98-10.04) K/mm3 RBC 3.94 L (3.98-5.22) M/mm3 Hgb 13.0 D (11.2-15.7) gm/dl Hct 38.7 (34.1-44.9) % MCV 98.2 H (79.4-94.8) fl MCH 33.0 H (25.6-32.2) pg MCHC 33.6 (32.2-35.5) g/dl RDW Std Deviation 49.3 H (36.4-46.3) fL Plt Count 67 L (182-369) K/mm3 MPV 11.0 (9.4-12.3) fl Neut % (Auto) 61.0 (34.0-71.1) % Lymph % (Auto) 24.0 (19.3-51.7) % Pepin % (Auto) 12.6 H (4.7-12.5) % Eos % (Auto) 1.8 (0.7-5.8) Baso % (Auto) 0.3 (0.1-1.2) % Neut # (Auto) 2.03 (1.56-6.13) K/mm3 Lymph # (Auto) 0.80 L (1.18-3.74) K/mm3 Pepin # (Auto) 0.42 H (0.24-0.36) K/mm3 Eos # (Auto) 0.06 (0.04-0.36) K/mm3 Baso # (Auto) 0.01 (0.01-0.08) K/mm3 Manual Slide Review Abnormal smear Sodium 141 (136-145) mEq/L Potassium 3.3 L (3.5-5.1) mEq/L Chloride 104 (98-107) mEq/L Carbon Dioxide 27 (21-32) mEq/L Anion Gap 13.3 (5-15) BUN 5 L (7-18) mg/dL Creatinine 0.8 (0.55-1.02) mg/dL Est Cr Clr Drug Dosing 82.33 mL/min Estimated GFR (MDRD) > 60 (>60) mL/min BUN/Creatinine Ratio 6.3 L (14-18) Glucose 97 (74-106) mg/dL Calcium 8.2 L (8.5-10.1) mg/dL Magnesium 1.9 (1.8-2.4) mg/dl Total Bilirubin 1.9 H (0.2-1.0) mg/dL AST 377 H (15-37) U/L ALT 179 H (14-59) U/L Alkaline Phosphatase 65 (46-116) U/L Total Protein 5.7 L (6.4-8.2) g/dl Albumin 3.2 L (3.4-5.0) g/dl Globulin 2.5 gm/dL Albumin/Globulin Ratio 1.3 (1-2) TSH 3rd Generation (0.358-3.74) uIU/mL Urine Opiates Screen Negative (ZRMRSS=870) Ur Buprenorphine Scrn Negative (CUTOFF=10) Ur Oxycodone Screen Negative (KYL6DW=823) Urine Methadone Screen Negative (FWDAAA=805) Ur Propoxyphene Screen Negative (APBMKH=779) Ur Barbiturates Screen Negative (GBCGCY=043) Ur Tricyclics Screen Negative (QDDNZU=340) Ur Phencyclidine Scrn Negative (CUTOFF=25) Ur Amphetamine Screen Negative (DVRFFU=440) U Methamphetamines Scrn Negative (LWMWEL=147) U Benzodiazepines Scrn Negative (DWPOEP=136) U Cocaine Metab Screen Negative (CCPEKM=125) U Marijuana (THC) Screen Negative (CUTOFF=50) Hep Bs Antigen (NONREACTIVE) Hepatitis C Antibody (NEGATIVE) Monoscreen (NEGATIVE) Result Diagrams: 04/30/20 04:56 04/30/20 04:56 Sepsis Event Note - Evaluation Sepsis Screening Result: No Definite Risk - Focused Exam Vital Signs: Vital Signs Temp Pulse Resp BP Pulse Ox 04/30/20 03:07 97.9 F 73 12 133/80 98 04/29/20 22:59 98.1 F 70 14 109/83 97 - Problem List & Annotations (1) History of Naun thyroiditis SNOMED Code(s): 083609049 Code(s): Z86.39 - PERSONAL HISTORY OF ENDO, NUTRITIONAL AND METABOLIC DISEASE Status: Chronic Priority: Medium Current Visit: Yes (2) Asthma SNOMED Code(s): 796313383 Code(s): J45.909 - UNSPECIFIED ASTHMA, UNCOMPLICATED Status: Chronic Priority: Low Current Visit: No Qualifiers: Asthma severity: unspecified severity Asthma persistence: unspecified Asthma complication type: unspecified Qualified Code(s): J45.909 - Unspecified asthma, uncomplicated (3) Generalized weakness SNOMED Code(s): 43851206 Code(s): R53.1 - WEAKNESS Status: Acute Priority: High Current Visit: Yes (4) Abdominal pain SNOMED Code(s): 01120577 Code(s): R10.9 - UNSPECIFIED ABDOMINAL PAIN Status: Acute Priority: High Current Visit: Yes Qualifiers: Abdominal location: upper abdomen, unspecified Qualified Code(s): R10.10 - Upper abdominal pain, unspecified (5) Elevated liver enzymes SNOMED Code(s): 404957053 Code(s): R74.8 - ABNORMAL LEVELS OF OTHER SERUM ENZYMES Status: Acute Priority: High Current Visit: Yes (6) Hypomagnesemia SNOMED Code(s): 303789181 Code(s): E83.42 - HYPOMAGNESEMIA Status: Acute Priority: High Current Visit: Yes (7) Nausea & vomiting SNOMED Code(s): 61345708 Code(s): R11.2 - NAUSEA WITH VOMITING, UNSPECIFIED Status: Acute Priority: High Current Visit: Yes Qualifiers: Vomiting type: unspecified Vomiting Intractability: non-intractable Qualified Code(s): R11.2 - Nausea with vomiting, unspecified (8) Dehydration SNOMED Code(s): 69339513 Code(s): E86.0 - DEHYDRATION Status: Acute Priority: High Current Visit: Yes (9) Hypothyroidism SNOMED Code(s): 62961137 Code(s): E03.9 - HYPOTHYROIDISM, UNSPECIFIED Status: Chronic Priority: High Current Visit: Yes Qualifiers: Hypothyroidism type: unspecified Qualified Code(s): E03.9 - Hypothyroidism, unspecified (10) Failure of outpatient treatment SNOMED Code(s): 971156246 Code(s): Z78.9 - OTHER SPECIFIED HEALTH STATUS Status: Acute Priority: High Current Visit: Yes (11) Hypokalemia SNOMED Code(s): 28672256 Code(s): E87.6 - HYPOKALEMIA Status: Acute Priority: High Current Visit: Yes - Problem List Review Problem List Initiated/Reviewed/Updated: Yes - My Orders Last 24 Hours: My Active Orders 04/29/20 08:13 Height and Weight [RC] 06 Intake and Output [RC] 04,16 Oxygen Therapy [RC] PRN Pulse Oximetry [RC] PRN Up With Assistance [RC] BID VTE/DVT Education [RC] DAILY Vital Signs [RC] Q4HR HYDROmorphone [Dilaudid] 0.25 mg IVPUSH Q2H PRN Ondansetron [Zofran] 4 mg IV Q6H PRN oxyCODONE 5 mg PO Q4H PRN Resuscitation Status Routine 04/29/20 09:10 HEPATITIS PANEL (4) [REF] Routine 04/29/20 11:54 RT Post Treatment Assessment [RC] Click to Edit RT Pre-Treatment Assessment [RC] Click to Edit 04/29/20 12:00 Albuterol [Proventil HFA] 0 gm INH Q4H PRN Dextrose 5%-Lact Ringers w/KCl [D5 LR with 20 mEq KCl] 1,000 ml IV ASDIRECTED 04/29/20 12:29 Patient Status [ADT] Routine 04/29/20 13:00 Levothyroxine [Synthroid] 100 mcg PO ACBREAKFAST Scopolamine [Transderm-Scop] 1.5 mg TRDERM Q72H 04/29/20 Dinner Clear Liquid Diet [DIET] 04/30/20 09:00 Potassium Chloride [KCl in Water 10 MEQ/100 ML] 10 meq Premix Bag 1 bag IV Q1H 04/30/20 09:15 HIDA with EF [Cholescintigraphy w Pharm Int] [NM] Routine 05/01/20 05:11 CBC WITH AUTO DIFF [HEME] AM CMP [COMPREHENSIVE METABOLIC PN,CMP] [CHEM] AM MAGNESIUM [CHEM] AM 05/02/20 05:11 CBC WITH AUTO DIFF [HEME] AM CMP [COMPREHENSIVE METABOLIC PN,CMP] [CHEM] AM MAGNESIUM [CHEM] AM 05/02/20 13:00 Remove Patch 1 ea TRDERM Q72H 05/03/20 05:11 CBC WITH AUTO DIFF [HEME] AM CMP [COMPREHENSIVE METABOLIC PN,CMP] [CHEM] AM MAGNESIUM [CHEM] AM - Assessment Assessment:: Assessment - day of admission - 04/29/20 * 9-year-old female presents to ED with nausea and vomiting that is been ongoing for about a week. * Was seen in the ED on 04/28/20 and symptoms have continued * Was scheduled to have abdominal ultrasound today, but return to ED after being unable to keep anything down. * has had to carry her around the house. * No prior cholecystectomy or appendectomy. Does not drink and rarely utilizes acetaminophen. * Labs in ED: * WBC 5.55 * Hemoglobin 14.7 * Platelet 104 * Neutrophil 3.78 * INR 1.07 * Sodium 139 * Potassium 3.9 * Chloride 97 * Anion gap 21.5 * BUN 9, creatinine 0.9, GFR greater than 60 * Glucose 94 * Bilirubin 2.0 * AST 268, ALT 177, alkaline phosphatase 86 * Albumin 4.0 * Lipase 298 * Lactic acid 1.2 * Free T4 0.81 * Qualitative hCG negative * Ethyl alcohol negative * Acetaminophen negative * SARS-CoV-2 RNA screen negative * CT abdomen and pelvis obtained in ED shows fatty liver and possible mild GERD. Other nonacute findings. * Given 3 L IV fluid boluses along with antiemetics and 1 g magnesium. * Plan was to discharge patient however she remained weak and nauseated. Patient admitted observation status for management of her nausea, vomiting, dehydration, and further work-up for transaminitis. * Labs on floor: * TSH 14.622 * UA negative however 1+ protein, 4+ ketones, 3+ occult blood, 2+ bilirubin, 10-20 urine RBCs and 5-10 squamous epithelial cells noted. * Hepatitis B antigen nonreactive * Hepatitis C antibody negative * Pepin screen negative * Hepatitis panel pending * Abdominal ultrasound obtained on floor shows prominent fatty infiltration within the liver but no additional abnormality. 04/30/20 * HIDA scan obtained this morning unremarkable with normal ejection fraction. * Patient has had no nausea or vomiting since yesterday * Diet advanced to regular diet and she is tolerating this well. * Started on Protonix daily * Potassium supplemented today * Magnesium supplemented today. * Labs today: * WBC 3.33. * Hemoglobin 13.0. * Platelets 67,000. * Neutrophil 2.03. * Potassium 3.3. * Anion gap 13.3. * BUN 5, Creatinine 0.8, GFR greater than 60. * Calcium 8.2. * Bilirubin 1.9. * AST 377, ALT 179, alkaline phosphatase 65. * Protein 5.7. * Albumin 3.2. * Discussed with Dr. Guadalupe who recommends patient spend the night for lab draw redraw in the morning. Patient agrees to this plan. * Likely discharge tomorrow pending outcome of labs. * Will require PCP and GI follow-up after discharge. - Plan Plan:: Nausea & vomiting, Resolved Dehydration, Resolved Abdominal pain, Resolved Elevated liver enzymes Hypomagnesemia Generalized weakness, Improved Failure of outpatient treatment Hypokalemia * Discontinue IV fluids * Regular diet * Repeat daily labs * Up ad khoa * Start Protonix daily * Scopolamine patch * PRN antiemetics as ordered * Hepatitis panel pending * Supplement potassium * Follow-up with PCP after discharge * Recommend GI referral after discharge Hypothyroidism History of Naun thyroiditis Asthma * Resume home levothyroxine * Resume PRN albuterol inhaler * Monitor for respiratory symptoms Code status: Full PCP: Yolande Ferreira NP DVT prophylaxis: VTE score of 1 - not indicated Disposition: Admitted to medical floor observation status for management of nausea and vomiting, generalized weakness, abdominal pain, and further work-up for transaminitis. Upgraded to inpatient status. Anticipated discharge tomorrow pending continued stability.
[2020-04-30] MEDS ORDERED: Pantoprazole 40 MG Tab.CR PO SCH ×2 (09:00→12:15)
--- NOTE | 2020-04-30 12:13 | NM ---
Biliary HIDA scan with ejection fraction Technique: 5.2 mCi of technetium 99m mebrofenin was given intravenously. Scintigraphic imaging was obtained over the upper abdomen. During the study, 3 ounces of heavy whipping cream was given with 1 teaspoon of sugar. Continued scintigraphic imaging was performed. Comparison: Prior limited abdominal ultrasound of 04/29/20. Findings: Normal activity is seen within the liver and gallbladder. Small bowel activity is also normal. Gallbladder ejection fraction is 50 percent.. Impression: 1. Normal hepatobiliary scan. Gallbladder ejection fraction of 50 percent which is within normal limits. Diagnostic code #1
[2020-04-30] MEDS: Levothyroxine 100 MCG Tab PO SCH (12:42)
[2020-04-30] MEDS: Potassium Chloride 10 MEQ in Premix Bag 1 BAG IV SCH ×2 (12:43→17:41)
[2020-04-30] MEDS: Dextrose 5%-Lact Ringers w/KCl 1,000 ML IV SCH (12:43)
[2020-04-30] MEDS ORDERED: Potassium Chloride 20 MEQ Tab.ER PO ONE ×2 (15:15→21:00)
[2020-04-30] MEDS: Magnesium Oxide 400 MG Tab PO SCH ×2 (16:10→20:50)
--- NOTE | 2020-05-01 07:46 | PCM.DCSUM1 ---
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 She was present in her ED the day prior for similar symptoms and was supposed to have an abdominal ultrasound obtained today. She has been unable to keep anything down and is very weak. She reports her has been caring around the house. She states in our ED on her prior visit she was given several liters of fluid and felt okay when she left but that night she started to vomit again and her weakness returned. No history of cholecystectomy or appendectomy. Liver enzymes were noted to be elevated yesterday. She reports she does not drink or utilize acetaminophen very often. Denies any fever, chills, cough, chest pain, shortness of breath, diarrhea, or urinary symptoms. She does have a history of hypothyroidism but is not been taking her levothyroxine because it makes her feel dizzy and because she has been vomiting. In the ED temperature was 97.6 Fahrenheit. Pulse 111. Respirations 20. Blood pressure 139/91. Pulse ox 96%. Labs were obtained showing no leukocytosis with a WBC of 5.55. Hemoglobin is 14.7. She is macrocytic. Platelets are 104,000. Neutrophils are normal at 3.78. INR is 1.07. Sodium is 139. Potassium is on the low end of normal at 3.5. Chloride is 97. Carbon dioxide 24. Anion gap is very high at 21.5. BUN is 9. Creatinine 0.9. GFR greater than 60. Glucose is 94. Calcium is 8.9. Magnesium 1.4. Bilirubin 2.0. AST is 260, ALT 177, alkaline phosphatase 86. Protein 7.1. Albumin 4.0. H CG qualitative is negative. Acetaminophen is 0. Ethyl alcohol is 0. Lactic acid is 1.2. Free T4 is 0.81. SARS-CoV-[address] scan of her abdomen and pelvis is obtained showing prominent fatty infiltration throughout the liver and mild gastroesophageal reflux but nothing acute. She is given several liters of IV fluid, Reglan, and 1 g of IV magnesium. Plan was to discharge her but she continued to have nausea difficulty with ambulation. Decision is made to admit her observation status due to her continued nausea, vomiting, and weakness. 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 She was never a smoker. PCP is Yolande Ferreira NP. Diagnosis: Stroke: No - Discharge Data Discharge Date: 05/01/20 (Admit date: 04/29/20) Discharge Disposition: Against Medical Advice 07 Condition: Good - Referral to Home Health Primary Care Physician: Yolande Ferreira NP - Discharge Diagnosis/Problem(s) (1) History of Naun thyroiditis SNOMED Code(s): 186551678 ICD Code: Z86.39 - PERSONAL HISTORY OF ENDO, NUTRITIONAL AND METABOLIC DISEASE Status: Chronic Priority: Medium (2) Asthma SNOMED Code(s): 315091971 ICD Code: J45.909 - UNSPECIFIED ASTHMA, UNCOMPLICATED Status: Chronic Priority: Low Qualifiers: Asthma severity: unspecified severity Asthma persistence: unspecified Asthma complication type: unspecified Qualified Code(s): J45.909 - Unspecified asthma, uncomplicated (3) Generalized weakness SNOMED Code(s): 43205617 ICD Code: R53.1 - WEAKNESS Status: Resolved Priority: High (4) Abdominal pain SNOMED Code(s): 05977998 ICD Code: R10.9 - UNSPECIFIED ABDOMINAL PAIN Status: Resolved Priority: High Qualifiers: Abdominal location: upper abdomen, unspecified Qualified Code(s): R10.10 - Upper abdominal pain, unspecified (5) Elevated liver enzymes SNOMED Code(s): 397149938 ICD Code: R74.8 - ABNORMAL LEVELS OF OTHER SERUM ENZYMES Status: Acute Priority: High (6) Hypomagnesemia SNOMED Code(s): 552306754 ICD Code: E83.42 - HYPOMAGNESEMIA Status: Acute Priority: High (7) Nausea & vomiting SNOMED Code(s): 00577318 ICD Code: R11.2 - NAUSEA WITH VOMITING, UNSPECIFIED Status: Resolved Priority: High Qualifiers: Vomiting type: unspecified Vomiting Intractability: non-intractable Qualified Code(s): R11.2 - Nausea with vomiting, unspecified (8) Dehydration SNOMED Code(s): 28329564 ICD Code: E86.0 - DEHYDRATION Status: Resolved Priority: High (9) Hypothyroidism SNOMED Code(s): 36497591 ICD Code: E03.9 - HYPOTHYROIDISM, UNSPECIFIED Status: Chronic Priority: High Qualifiers: Hypothyroidism type: unspecified Qualified Code(s): E03.9 - Hypothyroidism, unspecified (10) Failure of outpatient treatment SNOMED Code(s): 828527335 ICD Code: Z78.9 - OTHER SPECIFIED HEALTH STATUS Status: Acute Priority: High (11) Hypokalemia SNOMED Code(s): 93302421 ICD Code: E87.6 - HYPOKALEMIA Status: Acute Priority: High (12) Left against medical advice SNOMED Code(s): 132560949 ICD Code: Z53.29 - PROC/TRTMT NOT CRD OUT BEC PT DECISION FOR OTH REASONS Status: Acute Priority: High - Patient Summary/Data Labs Pending at D/C: Hepatitis panel Recommended Follow-up Testing/Procedures: Follow-up with primary care provider early next week Follow-up with GI at next available. Hospital Course: This is a 39-year-old female presents to ED on 04/29/2020 with nausea and vomiting that have been ongoing for about a week. She was seen in the ED on 04/28/2020 and was given IV fluids. She started to feel better and return home only to have worsening of symptoms. Per the note patient had her caring her around the house. In the ED platelets were low at 104 otherwise CBC was within normal limits. CMP showed a very high anion gap at 21.5 and her bilirubin was noted to be elevated at 2.0. AST was 268. ALT 177. Alkaline phosphatase was 86. Lipase was 298. Ethyl alcohol and acetaminophen were both negative. Abdominal CT scan was obtained showing fatty liver and possible mild GERD. There were other nonacute findings. She was given 3 days of fluid along with antiemetics and magnesium. Plan was to discharge the patient home however she remained weak and nauseated decision was then made to admit the patient observation status. He was later upgraded to inpatient. On the floor patient was noted to have a very high TSH of 14.622. Patient is on levothyroxine but reports that she has stopped taking it partially due to her nausea and vomiting but also due to the fact that it made her not feel right. UA was negative. Hep B antigen was nonreactive. Hep C antibody was negative. [place] screen was n egative. Hepatitis panel was obtained and is pending. Abdominal ultrasound was obtained and again shows prominent fatty infiltration within the liver but no additional abnormality. HIDA scan was obtained on 04/30/2020 was unremarkable with normal ejection fraction. Patient's nausea had resolved however her potassium was now noted to be 3.3. Anion gap had improved to 13.3. GFR remained greater than 60. Her AST had worsened to 377 and ALT had increased to 179. Alkaline phosphatase remains 65. Patient diet was advanced to regular and she tolerated this well. She started on Protonix daily due to her GERD. Abdominal pain had resolved. IV fluids were stopped. Plan was to keep patient overnight and recheck labs in the morning. We are also going to supplement her electrolytes. Patient was in agreement with this plan initially, however overnight patient was noted to have some occasional confusion. Patient reported that she wanted to go home and sleep in her own bed. She has nursing if she could leave for the night and return in the morning however nursing reported that if she left it would be AMA and she would be unable to return inpatient. Nursing attempted to convince patient to stay noting risks associated with leaving and reminding patient that she would likely be discharged in the morning. Patient was adamant about leaving. Patient left AMA shortly after 2 AM today. No physical exam or ROS obtained prior to discharge. It is recommended patient follow-up with GI after discharge for her fatty liver and transaminitis. - Patient Instructions Diet: Usual Diet as Tolerated Activity: As Tolerated Notify Provider of: Fever, Increased Pain, Nausea and/or Vomiting - Discharge Plan *PRESCRIPTION DRUG MONITORING PROGRAM REVIEWED*: No *COPY OF PRESCRIPTION DRUG MONITORING REPORT IN PATIENT RAUL: No Prescriptions/Med Rec: Magnesium 200 mg PO DAILY #30 tablet Metoclopramide HCl [Reglan] 10 mg PO Q6HR PRN #20 tablet PRN Reason: Nausea/Vomiting Home Medications: Home Meds Albuterol Sulfate [Albuterol Sulfate Hfa] 1 puff INH ASDIRECTED 11/23/19 [History] Levothyroxine Sodium [Synthroid] 100 mcg PO DAILY 11/23/19 [History] Ondansetron [Zofran ODT] 4 mg PO Q6H PRN #20 tab.dis 11/23/19 [Rx] Fluticasone Propionate [Flovent HFA] 1 puff INH DAILY 04/29/20 [History] Magnesium 200 mg PO DAILY #30 tablet 04/29/20 [Rx] Metoclopramide HCl [Reglan] 10 mg PO Q6HR PRN #20 tablet 04/29/20 [Rx] Oxygen Therapy Mode: Room Air Forms: ED Department Discharge Referrals: Yolande Ferreira NP [Primary Care Provider] - 05/11/20 9:45 am (Hospital follow- up appointment.) - Discharge Summary/Plan Comment DC Time >30 min.: No - General Info Date of Service: 05/01/20 - Review of Systems Systems Review Comment: Unable to obtain ROS as patient left AMA - Patient Data Vitals - Most Recent: Last Vital Signs Temp 97.3 F 04/30/20 17:14 Pulse 74 04/30/20 17:14 Resp 16 04/30/20 17:14 BP 118/74 04/30/20 17:14 Pulse Ox 100 04/30/20 17:14 Weight - Most Recent: 156 lb 14.4 oz I&O - Last 24 hours: Intake & Output 04/30/20 05/01/20 05/01/20 22:59 06:59 14:59 Intake Total 800 Balance 800 Lab Results - Last 24 hrs: Laboratory Results - last 24 hr 04/30/20 Range/Units 04:56 Manual Slide Review Abnormal smear - Exam Physical Findings Comments:: Unable to perform physical exam as patient left AMA.
--- NOTE | 2020-05-01 15:13 | PCM.SN.2 ---
- Free Text/Narrative Note: Notified by nursing and social work that patient's sister has been calling and reporting patient has become very confused and appears to be any type of manic episode. Patient reportedly stated that she was prescribed all kinds of new medications from the hospital, which is not true as she left AMA. Patient sister was calling to inquire about anything we might have given her that would have set this off. Per the sister patient has no diagnosed history of any mental illness but has had some symptoms in the past. In reviewing nursing notes it was noted patient had some somewhat bizarre behaviors prior to leaving but ultimately was alert to person place and time. Sister confirms with social work that she does not feel patient is a danger to herself or others at this time. Advised nursing to relay to patient's sister that if they feel she is a danger he should call an ambulance and have the patient brought into the emergency department.
== END 2020-05-01 02:15 | disposition left against medical advice (07) | DRG 861 ==
LOC: JD.ED 03:45 → JD.MS 08:04 → OBSVTOIN 12:29
PROVIDERS: ADMIT Family Medicine; ATTEND Family Medicine
DX: R53.1 Weakness (principal); R11.2 Nausea with vomiting, unspecified; J45.909 Unspecified asthma, uncomplicated; R10.10 Upper abdominal pain, unspecified; R74.01 Elevation of levels of liver transaminase levels; R74.8 Abnormal levels of other serum enzymes; E83.42 Hypomagnesemia; E86.0 Dehydration; Z20.822 Contact with and (suspected) exposure to COVID-19; E03.9 Hypothyroidism, unspecified; E87.6 Hypokalemia; Z53.29 Procedure and treatment not carried out because of patient's decision for other reasons; K76.0 Fatty (change of) liver, not elsewhere classified; K21.9 Gastro-esophageal reflux disease without esophagitis; Z78.9 Other specified health status; Z79.890 Hormone replacement therapy; Z79.899 Other long term (current) drug therapy
CPT/HCPCS: 36415; 74177; 74177-26; 76705; 76705-26; 78227; 78227-26; 80053; 80074; 80143; 80306; 80307; 81001; 83605; 83690; 83735; 84439; 84443; 84703; 85025; 85610; 85730; 86308; 86803; 87340; 96365; 96375; 99222; 99233; 99238; 99284; 99284-25; A9270-GY; A9537; J1200; J2405; J2765; J3475; J3480; J7120; U0002

== ENCOUNTER 2020-09-19 10:23 | Emergency (ER) | payer BC ==
[2020-09-19] MEDS ORDERED: LORazepam 2 MG/ML SDV IVPUSH ONE (10:28)
[2020-09-19] MEDS ORDERED: Promethazine 25 MG in Sodium Chloride 0.9% 50 ML IV ONE (10:28)
[2020-09-19] MEDS ORDERED: Thiamine 200 MG/2 ML MDV IVPUSH ONE (10:29)
[2020-09-19] MEDS ORDERED: HYDROmorphone 0.5 MG/0.5 ML Syringe IVPUSH ONE (10:29)
--- NOTE | 2020-09-19 10:36 | EDM.PDOC ---
ED HPI GENERAL MEDICAL PROBLEM - General Chief Complaint: Gastrointestinal Problem Stated Complaint: [facility] Time Seen by Provider: 09/19/20 10:23 Source of Information: Reports: Patient History Limitations: Reports: No Limitations - History of Present Illness INITIAL COMMENTS - FREE TEXT/NARRATIVE: 40-year-old female presents to the ED per [facility] from home here in [place]. She reports that she is trying to detox from alcohol and her old. Last drink taken greater than 48 hours ago. Has been binge drinking for the last 2 weeks with vodka up to 500 mils per day. Intractable nausea and vomiting without any hematemesis. No bowel movement for several days. She states about 10 days. Cannot remember when she last ate a solid meal. She has been falling at home due to lightheadedness and weakness with bruise to right shoulder and arm. Denies loss of consciousness or hitting her head hard. She has gone through detox in the past but never to this severity of right upper quadrant abdominal pain or recurrent vomiting. She enjoyed several months of sobriety up until 2 weeks ago when she began drinking again. Denies smoking cigarettes. D enies taking recreational drugs. Has had previous tubal ligation. She has never been told that she has pain pancreatitis from alcohol use in the past. She knows she has fatty liver. Onset: Gradual Onset Date: 09/17/20 (Has been vomiting off and on for the last 2 days) Duration: Day(s):, Getting Worse (Upper quadrant abdominal pain is much worse today.) Location: Reports: Abdomen (Epigastrium and right upper quadrant abdominal pain rating through to her back.) Quality: Reports: Ache, Pressure, Other Severity: Moderate (Deep boring aching pain right upper quadrant of the abdomen through to her back 7 out of 10) Improves with: Reports: None Worsens with: Reports: Other Context: Reports: Other (Acute alcohol detox). Denies: Activity (Vomiting makes things worse.), Exercise, Lifting, Sick Contact, Trauma Associated Symptoms: Reports: Diaphoresis, Loss of Appetite, Malaise, Nausea/Vomiting, Weakness, Other (Lightheadedness is caused her to fall at home on several occasions.). 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 (see below) (She states nothing will stay down.) Headache Pain Score (Numeric/FACES): 8 - Related Data Allergies Allergy/AdvReac Type Severity Reaction Status Date / Time No Known Allergies Allergy Verified 09/19/20 10:27 Home Meds: Home Meds Albuterol Sulfate [Albuterol Sulfate Hfa] 1 puff INH ASDIRECTED 11/23/19 [History] Levothyroxine Sodium [Synthroid] 88 mcg PO DAILY 11/23/19 [History] Fluticasone Propionate [Flovent HFA] 1 puff INH DAILY 04/29/20 [History] Famotidine [Pepcid AC] 20 mg PO BID #16 tablet 09/19/20 [Rx] LORazepam [Ativan] 1 mg PO ASDIRECTED #10 tablet 09/19/20 [Rx] Ondansetron [Zofran] 4 mg BUCCAL Q6H PRN #8 tab 09/19/20 [Rx] Past Medical History HEENT History: Reports: Impaired Vision Cardiovascular History: Reports: Syncope, Other (See Below) Other Cardiovascular History: 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 Apparently dosage was just dropped from 100 mcg/day) Other Endocrine/Metabolic History: Patient has been diagnosed with Naun's thyroiditis and her TSH values and thyroid replacement hormone have been very difficult to treat due to the values playing a roller coaster. Dermatologic History: Reports: Other (See Below) Other Dermatologic History: patient states she tripped in February in hit her face on gravel resulting in an abrasion to her left facial cheek under the eye and up towards the worship. Skin currently looks well healed with very slight purple discoloration noted under eye. - Infectious Disease History Infectious Disease History: Reports: Chicken Pox - Past Surgical History HEENT Surgical History: Reports: None Cardiovascular Surgical History: Reports: None Respiratory Surgical History: Reports: None GI Surgical History: Reports: None Female Surgical History: Reports: Tubal Ligation Social & Family History - Family History Family Medical History: No Pertinent Family History - Tobacco Use Tobacco Use Status *Q: Never Tobacco User - Caffeine Use Caffeine Use: Reports: Soda - Recreational Drug Use Recreational Drug Use: No - Living Situation & Occupation Living situation: Reports: Occupation: Unemployed ED ROS GENERAL - Review of Systems Review Of Systems: See Below Constitutional: Reports: Malaise, Weakness, Fatigue, Decreased Appetite, Weight Loss. Denies: Fever, Chills HEENT: Reports: No Symptoms Respiratory: Reports: Shortness of Breath Cardiovascular: Reports: Lightheadedness. Denies: Chest Pain, Blood Pressure Problem, Claudication, Dyspnea on Exertion, Edema, Orthopnea, Palpitations Endocrine: Reports: Fatigue GI/Abdominal: Reports: Abdominal Pain (See history of present illness.), Constipation, Decreased Appetite, Nausea, Vomiting. Denies: Hematemesis, Hematochezia (Intractable nausea and vomiting) : Reports: Other (Urine is dark in color now.) Musculoskeletal: Reports: Arm Pain (Left arm shoulder pain from where she fell. Full range of motion however.) Skin: Reports: Bruising (Mild bruising left upper extremity) Neurological: Reports: Dizziness, Headache, Tremors, Difficulty Walking, Weakness. Denies: Confusion, Numbness, Seizure, Syncope, Tingling, Trouble Speaking (Due to weakness), Change in Speech, Gait Disturbance Psychiatric: Reports: Other (History of alcohol binge drinking). Denies: Agitation, Anxiety, Confusion, Cravings, Depression, Suicidal Ideation Hematologic/Lymphatic: Reports: Easy Bruising Immunologic: Reports: No Symptoms ED EXAM, GI/ABD - Physical Exam Exam: See Below Exam Limited By: No Limitations General Appearance: Alert, Moderate Distress, Other (Temperature is 36.2. Heart rate was 132 and sinus when paramedics picked her up. Current heart rate is down to 112/min. Respiratory to 16 to 20/min with strong smell of ketones on her breath. Pulse oximetry is 99%. BP 126/92.) Eyes: Bilateral: Normal Appearance (No blepharal pallor or scleral icterus.) Throat/Mouth: Normal Inspection, Normal Teeth (Lips are chapped), Normal Voice, No Airway Compromise, Other (Tongue is moderately dry and coated). No: Normal Lips Head: Atraumatic, Normocephalic, Other (No outward signs of any head or facial trauma.) Neck: Normal Inspection, Supple, Non-Tender, Full Range of Motion. No: Lymphadenopathy (L), Lymphadenopathy (R) Respiratory/Chest: Lungs Clear, Normal Breath Sounds, No Accessory Muscle Use, Chest Non-Tender, Respiratory Distress (Mild tachypnea at rest with ketosis.). No: Rales, Rhonchi, Wheezing Cardiovascular: Normal Peripheral Pulses, No Edema (Sinus tachycardia at 115/min at the bedside), No Gallop, No Murmur, No Rub, Tachycardia GI/Abdominal Exam: No Distention, Pelvis Stable, Tender (Tenderness to light palpation epigastrium and right upper quadrant of the abdomen with a positive Alarcon sign.), Abnormal Bowel Sounds. No: Splenomegaly Back Exam: Normal Inspection, Full Range of Motion. No: CVA Tenderness (L), CVA Tenderness (R) Extremities: Normal Inspection, Normal Range of Motion, No Pedal Edema, Other (She has contusions to her right upper extremity shoulder and arm.) Neurological: Alert, Oriented, CN II-XII Intact, Normal Cognition. No: Normal Gait (Not evaluated in the ED.) Psychiatric: Anxious, Other (Appears ill.) Skin Exam: Warm, Dry, Intact, Normal Color, No Rash #1 Interpretation EKG Date: 09/19/20 Time: 11:30 Rhythm: Other (Sinus tachycardia) Rate (Beats/Min): 101 [place]: LAD-Left [place] Deviation (Minimal left axis deviation at -6 degrees) P-Wave: Enlarged (Left atrial hypertrophy pattern) QRS: Other (RSR prime wave V1 and V2 consider normal variant) ST-T: Other (Borderline T wave abnormalities throughout the precordial leads) QT: Prolonged (Moderately prolonged) EKG Interpretation Comments: Abnormal ECG Course - Vital Signs Last Recorded V/S: Last Vital Signs Temp 36.2 C 09/19/20 10:25 Pulse 112 H 09/19/20 10:25 Resp 16 09/19/20 10:25 BP 126/92 H 09/19/20 10:25 Pulse Ox 99 09/19/20 10:25 - Orders/Labs/Meds Orders: Active Orders 24 hr Category Date Time Status EKG Documentation Completion [RC] STAT Care 09/19/20 10:30 Active Abdomen 1V Flat [CR] Stat Exams 09/19/20 10:33 Taken CALCIUM, IONIZED, SERUM [REF] Stat Lab 09/19/20 10:46 Received PTH, INTACT [REF] Stat Lab 09/19/20 10:46 Received Dextrose 5%-Lactated Ringers 1,000 ml Med 09/19/20 10:30 Active IV ASDIRECTED Dextrose 5%-Lactated Ringers 1,000 ml Med 09/19/20 12:15 Active IV ASDIRECTED Medication Orders Dextrose/Lactated Ringer's (Dextrose 5%-Lactated Ringers) 1,000 mls @ 999 mls/hr IV ASDIRECTED LANI Last Admin: 09/19/20 12:12 Dose: 400 mls/hr Documented by: Infusion: 09/19/20 11:47 Dose: 400 mls/hr Documented by: Admin: 09/19/20 10:46 Dose: 999 mls/hr Documented by: RODRI Dextrose/Lactated Ringer's (Dextrose 5%-Lactated Ringers) 1,000 mls @ 999 ml s/hr IV ASDIRECTED LANI Stop: 09/22/20 13:16 Last Admin: 09/19/20 14:26 Dose: 999 mls/hr Documented by: Infusion: 09/19/20 14:22 Dose: 999 mls/hr Documented by: Admin: 09/19/20 13:21 Dose: 999 mls/hr Documented by: Infusion: 09/19/20 13:21 Dose: 400 mls/hr Documented by: Admin: 09/19/20 12:21 Dose: 400 mls/hr Documented by: COLE Labs: Laboratory Tests 09/19/20 09/19/20 09/19/20 Range/Units 10:46 10:46 10:46 WBC 9.47 (3.98-10.04) K/mm3 RBC 5.52 H (3.98-5.22) M/mm3 Hgb 16.4 H D (11.2-15.7) gm/dl Hct 44.9 (34.1-44.9) % MCV 81.3 D (79.4-94.8) fl MCH 29.7 (25.6-32.2) pg MCHC 36.5 H (32.2-35.5) g/dl RDW Std Deviation 39.8 (36.4-46.3) fL Plt Count 195 D (182-369) K/mm3 MPV 11.2 (9.4-12.3) fl Neut % (Auto) 81.7 H (34.0-71.1) % Lymph % (Auto) 8.9 L (19.3-51.7) % Hughes % (Auto) 9.2 (4.7-12.5) % Eos % (Auto) 0 L (0.7-5.8) Baso % (Auto) 0.1 (0.1-1.2) % Neut # (Auto) 7.74 H (1.56-6.13) K/mm3 Lymph # (Auto) 0.84 L (1.18-3.74) K/mm3 [place] # (Auto) 0.87 H (0.24-0.36) K/mm3 Eos # (Auto) 0.00 L (0.04-0.36) K/mm3 Baso # (Auto) 0.01 (0.01-0.08) K/mm3 Manual Slide Review Normal smear PT 10.3 (9.7-12.0) SECONDS INR 0.96 APTT 25.9 (21.7-31.4) SECONDS Sodium 131 L D (136-145) mEq/L Potassium 3.0 L (3.5-5.1) mEq/L Chloride 84 L D (98-107) mEq/L Carbon Dioxide 27 (21-32) mEq/L Anion Gap 23.0 H (5-15) BUN 23 H (7-18) mg/dL Creatinine 1.3 H (0.55-1.02) mg/dL Est Cr Clr Drug Dosing 52.28 mL/min Estimated GFR (MDRD) 46 (>60) mL/min BUN/Creatinine Ratio 17.7 (14-18) Glucose 146 H (70-99) mg/dL Lactic Acid (0.4-2.0) mmol/L Calcium 11.7 H D (8.5-10.1) mg/dL Magnesium 2.1 (1.8-2.4) mg/dL Total Bilirubin 2.6 H (0.2-1.0) mg/dL GGT 48 (5-55) U/L AST 110 H (15-37) U/L ALT 110 H (14-59) U/L Alkaline Phosphatase 76 (46-116) U/L C-Reactive Protein 1.0 (<1.0) mg/dL Total Protein 8.0 (6.4-8.2) g/dl Albumin 4.6 (3.4-5.0) g/dl Globulin 3.4 gm/dL Albumin/Globulin Ratio 1.4 (1-2) Lipase 198 (73-393) U/L Urine Color (Yellow) Urine Appearance (Clear) Urine pH (5.0-8.0) Ur Specific [place] (1.005-1.030) Urine Protein (Negative) Urine Glucose (UA) (Negative) Urine Ketones (Negative) Urine Occult Blood (Negative) Urine Nitrite (Negative) Urine Bilirubin (Negative) Urine Urobilinogen (0.2-1.0) Ur Leukocyte Esterase (Negative) U Hyaline Cast (Auto) (0-5) /lpf Urine RBC (0-5) /hpf Urine WBC (0-5) /hpf Urine Bacteria (FEW) /hpf Urine Mucus (FEW) /hpf Urine HCG, Qual (NEGATIVE) Urine Opiates Screen (UEHKHP=867) Ur Buprenorphine Scrn (CUTOFF=10) Ur Oxycodone Screen (PLY4KU=550) Urine Methadone Screen (ZLPQPH=381) Ur Propoxyphene Screen (QUBUMK=227) Ur Barbiturates Screen (XMGBNW=611) Ur Tricyclics Screen (YSVQZI=441) Ur Phencyclidine Scrn (CUTOFF=25) Ur Amphetamine Screen (MKGMWF=683) U Methamphetamines Scrn (KXQDBR=205) U Benzodiazepines Scrn (PQMIRA=149) U Cocaine Metab Screen (XFIWSE=183) U Marijuana (THC) Screen (CUTOFF=50) Ethyl Alcohol 0.00 (0.00) gm% Ketones (0.0-0.3) mM SARS-CoV-2 RNA (ELMER) (NEGATIVE) 09/19/20 09/19/20 09/19/20 Range/Units 10:46 10:46 11:45 WBC (3.98-10.04) K/mm3 RBC (3.98-5.22) M/mm3 Hgb (11.2-15.7) gm/dl Hct (34.1-44.9) % MCV (79.4-94.8) fl MCH (25.6-32.2) pg MCHC (32.2-35.5) g/dl RDW Std Deviation (36.4-46.3) fL Plt Count (182-369) K/mm3 MPV (9.4-12.3) fl Neut % (Auto) (34.0-71.1) % Lymph % (Auto) (19.3-51.7) % [place] % (Auto) (4.7-12.5) % Eos % (Auto) (0.7-5.8) Baso % (Auto) (0.1-1.2) % Neut # (Auto) (1.56-6.13) K/mm3 Lymph # (Auto) (1.18-3.74) K/mm3 [place] # (Auto) (0.24-0.36) K/mm3 Eos # (Auto) (0.04-0.36) K/mm3 Baso # (Auto) (0.01-0.08) K/mm3 Manual Slide Review PT (9.7-12.0) SECONDS INR APTT (21.7-31.4) SECONDS Sodium (136-145) mEq/L Potassium (3.5-5.1) mEq/L Chloride (98-107) mEq/L Carbon Dioxide (21-32) mEq/L Anion Gap (5-15) BUN (7-18) mg/dL Creatinine (0.55-1.02) mg/dL Est Cr Clr Drug Dosing mL/min Estimated GFR (MDRD) (>60) mL/min BUN/Creatinine Ratio (14-18) Glucose (70-99) mg/dL Lactic Acid 1.5 (0.4-2.0) mmol/L Calcium (8.5-10.1) mg/dL Magnesium (1.8-2.4) mg/dL Total Bilirubin (0.2-1.0) mg/dL GGT (5-55) U/L AST (15-37) U/L ALT (14-59) U/L Alkaline Phosphatase (46-116) U/L C-Reactive Protein (<1.0) mg/dL Total Protein (6.4-8.2) g/dl Albumin (3.4-5.0) g/dl Globulin gm/dL Albumin/Globulin Ratio (1-2) Lipase (73-393) U/L Urine Color (Yellow) Urine Appearance (Clear) Urine pH (5.0-8.0) Ur Specific [place] (1.005-1.030) Urine Protein (Negative) Urine Glucose (UA) (Negative) Urine Ketones (Negative) Urine Occult Blood (Negative) Urine Nitrite (Negative) Urine Bilirubin (Negative) Urine Urobilinogen (0.2-1.0) Ur Leukocyte Esterase (Negative) U Hyaline Cast (Auto) (0-5) /lpf Urine RBC (0-5) /hpf Urine WBC (0-5) /hpf Urine Bacteria (FEW) /hpf Urine Mucus (FEW) /hpf Urine HCG, Qual (NEGATIVE) Urine Opiates Screen (FVHZYS=343) Ur Buprenorphine Scrn (CUTOFF=10) Ur Oxycodone Screen (KSL6SA=775) Urine Methadone Screen (ETFPOZ=266) Ur Propoxyphene Screen (NJYVMN=122) Ur Barbiturates Screen (VWAIDI=198) Ur Tricyclics Screen (ABERST=657) Ur Phencyclidine Scrn (CUTOFF=25) Ur Amphetamine Screen (ILCARG=046) U Methamphetamines Scrn (KVATAO=967) U Benzodiazepines Scrn (YVTZKH=900) U Cocaine Metab Screen (WJRHWS=409) U Marijuana (THC) Screen (CUTOFF=50) Ethyl Alcohol (0.00) gm% Ketones 10.58 (0.0-0.3) mM SARS-CoV-2 RNA (ELMER) Negative (NEGATIVE) 09/19/20 09/19/20 09/19/20 Range/Units 14:55 14:55 14:55 WBC (3.98-10.04) K/mm3 RBC (3.98-5.22) M/mm3 Hgb (11.2-15.7) gm/dl Hct (34.1-44.9) % MCV (79.4-94.8) fl MCH (25.6-32.2) pg MCHC (32.2-35.5) g/dl RDW Std Deviation (36.4-46.3) fL Plt Count (182-369) K/mm3 MPV (9.4-12.3) fl Neut % (Auto) (34.0-71.1) % Lymph % (Auto) (19.3-51.7) % [place] % (Auto) (4.7-12.5) % Eos % (Auto) (0.7-5.8) Baso % (Auto) (0.1-1.2) % Neut # (Auto) (1.56-6.13) K/mm3 Lymph # (Auto) (1.18-3.74) K/mm3 [place] # (Auto) (0.24-0.36) K/mm3 Eos # (Auto) (0.04-0.36) K/mm3 Baso # (Auto) (0.01-0.08) K/mm3 Manual Slide Review PT (9.7-12.0) SECONDS INR APTT (21.7-31.4) SECONDS Sodium (136-145) mEq/L Potassium (3.5-5.1) mEq/L Chloride (98-107) mEq/L Carbon Dioxide (21-32) mEq/L Anion Gap (5-15) BUN (7-18) mg/dL Creatinine (0.55-1.02) mg/dL Est Cr Clr Drug Dosing mL/min Estimated GFR (MDRD) (>60) mL/min BUN/Creatinine Ratio (14-18) Glucose (70-99) mg/dL Lactic Acid (0.4-2.0) mmol/L Calcium (8.5-10.1) mg/dL Magnesium (1.8-2.4) mg/dL Total Bilirubin (0.2-1.0) mg/dL GGT (5-55) U/L AST (15-37) U/L ALT (14-59) U/L Alkaline Phosphatase (46-116) U/L C-Reactive Protein (<1.0) mg/dL Total Protein (6.4-8.2) g/dl Albumin (3.4-5.0) g/dl Globulin gm/dL Albumin/Globulin Ratio (1-2) Lipase (73-393) U/L Urine Color Yellow (Yellow) Urine Appearance Clear (Clear) Urine pH 7.0 (5.0-8.0) Ur Specific [place] 1.020 (1.005-1.030) Urine Protein 1+ H (Negative) Urine Glucose (UA) 2+ H (Negative) Urine Ketones 3+ H (Negative) Urine Occult Blood 1+ H (Negative) Urine Nitrite Negative (Negative) Urine Bilirubin 1+ H (Negative) Urine Urobilinogen 0.2 (0.2-1.0) Ur Leukocyte Esterase Negative (Negative) U Hyaline Cast (Auto) 0-5 (0-5) /lpf Urine RBC 0-5 (0-5) /hpf Urine WBC 0-5 (0-5) /hpf Urine Bacteria Few (FEW) /hpf Urine Mucus Not seen (FEW) /hpf Urine HCG, Qual Negative (NEGATIVE) Urine Opiates Screen Negative (JZYWGR=149) Ur Buprenorphine Scrn Negative (CUTOFF=10) Ur Oxycodone Screen Negative (FAL7AP=413) Urine Methadone Screen Negative (VKONHV=264) Ur Propoxyphene Screen Negative (IZAMVL=617) Ur Barbiturates Screen Negative (UONQBJ=829) Ur Tricyclics Screen Negative (OVZALD=391) Ur Phencyclidine Scrn Negative (CUTOFF=25) Ur Amphetamine Screen Negative (MFBVDE=220) U Methamphetamines Scrn Negative (SPBXII=941) U Benzodiazepines Scrn Negative (WSPXMM=276) U Cocaine Metab Screen Negative (FDNWGM=321) U Marijuana (THC) Screen Negative (CUTOFF=50) Ethyl Alcohol (0.00) gm% Ketones (0.0-0.3) mM SARS-CoV-2 RNA (ELMER) (NEGATIVE) Meds: Medications Generic Name Dose Route Start Last Admin Trade Name Freq PRN Reason Stop Dose Admin Dextrose/Lactated Ringer's 1,000 mls @ 999 mls/hr 09/19/20 10:30 09/19/20 12:12 Dextrose 5%-Lactated Ringers IV 400 mls/hr ASDIRECTED LANI Administration Dextrose/Lactated Ringer's 1,000 mls @ 999 mls/hr 09/19/20 12:15 09/19/20 14:26 Dextrose 5%-Lactated Ringers IV 09/22/20 13:16 999 mls/hr ASDIRECTED LANI Administration Discontinued Medications Generic Name Dose Route Start Last Admin Trade Name Freq PRN Reason Stop Dose Admin Al Hydroxide/Mg Hydroxide 30 ml 09/19/20 12:00 09/19/20 12:11 Aluminum Hydroxide/Magnesium Hydroxide/Simethicone Susp 30 Ml Cup PO 09/19/20 12:01 30 ml ONETIME ONE Administration Diphenhydramine HCl 25 mg 09/19/20 16:30 09/19/20 17:07 Diphenhydramine 50 Mg/Ml Sdv IVPUSH 09/19/20 16:31 25 mg ONETIME ONE Administration Famotidine 20 mg 07/31/21 12:00 09/19/20 12:11 Famotidine 20 Mg/2 Ml Sdv IVPUSH 09/19/20 12:01 20 mg ONETIME ONE Administration Hydromorphone HCl 0.5 mg 09/19/20 10:29 09/19/20 10:41 Hydromorphone 0.5 Mg/0.5 Ml Syringe IVPUSH 09/19/20 10:30 0.5 mg ONETIME ONE Administration Promethazine HCl 25 mg/ Sodium 51 mls @ 100 mls/hr 09/19/20 10:28 09/19/20 10:43 Chloride IV 09/19/20 10:58 100 mls/hr ONETIME ONE Administration Potassium Chloride 10 meq/ 100 mls @ 100 mls/hr 09/19/20 12:15 09/19/20 15:36 Premix IV 09/19/20 16:14 100 mls/hr Q1H LANI Administration Lorazepam 1 mg 09/19/20 10:28 09/19/20 10:41 Lorazepam 2 Mg/Ml Sdv IVPUSH 09/19/20 10:29 1 mg ONETIME ONE Administration Thiamine HCl 100 mg 09/19/20 10:29 09/19/20 10:42 Thiamine 200 Mg/2 Ml Mdv IVPUSH 09/19/20 10:30 100 mg ONETIME ONE Administration - Radiology Interpretation Free Text/Narrative:: 40-year-old female presents to the ED acutely ill from alcohol detox at home. Last drink was taken over 48 hours ago. She has been been binge drinking hard drinking up to 500 mils of vodka daily for about 2 weeks. History of similar behavior in the past. She presents due to intractable nausea and vomiting generalized weakness and lightheadedness. She states she has had several falls at home. No hematemesis. No bowel movement for 10 days. Cannot member when she had anything solid to eat last. Exam reveals her to be tachycardic at the bedside. Mild tachypnea. Strong smell of ketones on her breath. Paramedics have given her Zofran 4 mg IV and started normal saline drip at 100 mils an hour. IV will be changed to D5 LR at open. Phenergan 25 mg IV since she reports an adverse effect of Reglan in the past. Given Dilaudid 0.5 mg IV for right upper quadrant abdominal pain. Ativan 1 mg IV as well. She will have a KUB done to establish how severe her constipation issues might be. Serum ketones and lactic acid to be done. Blood alcohol and urine drug screen as well. It appears that she will likely be admitted to the hospital due to acute detox symptoms at this time. She will be given thiamine 100 mg IV. Covid screen to be done. Routine labs to be performed including serum lipase and GGT and coags. - Re-Assessments/Exams Free Text/Narrative Re-Assessment/Exam: 09/19/20 11:39 White count is 9.47 with 82% neutrophils. This is on the auto differential. Hemoglobin is 16.4 with hematocrit of 44.9 suggesting mild hemoconcentration MCV is normal at 81.3. Platelet count 195,000. PT is 10.3 with an INR of 0.96 PTT is 25.9. Sodium is slightly low at 131 with a low potassium of 3.0. Chloride is 84 the bicarb of 27. Anion gap is elevated at 23.0. BUN is 23 with a creatinine of 1.3 and a GFR of 46. BUN/creatinine ratio is 17.7. Glucose slightly elevated at 146. Lactic acid 1.5. Calcium is elevated at 11.7. Ionized calcium was ordered as well as a parathyroid hormone assay. Magnesium is 2.1 bilirubin elevated at 2.6. GGT is normal at 48 AST elevated at 110 ALT is elevated at 110. Alkaline phosphatase normal at 76. C- reactive protein is 1.0 with total protein of 8.0 lipase is 198. Blood alcohol is 0.00. Serum ketones are markedly elevated at 10.58. 09/19/20 11:43 KUB reveals positive gas in the small bowel. There is some increased stool throughout the colon and mildly in the rectal vault without any significant constipation. 09/19/20 12:01 I have discussed the findings with the patient of abnormalities i n her bloodstream. She is going to require probably 3 to 4 L of IV fluids and 4K riders to improve her serum potassium and bring her ketones under control. Otherwise she will have persistent nausea and vomiting. She does not really want to stay in the hospital. We will therefore keep her in the ED for the next 4 to 6 hours to improve her situation. She is complaining of burning sensation in her upper chest from vomiting. We will give Pepcid 20 mg IV and Maalox 30 mg p.o. the patient prefers treatment in the emergency room and would prefer not to be admitted to the hospital. The plan will be to send her home with some Ativan for a few days and Zofran to prevent prevent any further nausea or vomiting. 09/19/20 12:49 COVID-19 screen is negative. Departure - Departure Time of Disposition: 17:12 Disposition: Home, Self-Care 01 Condition: Fair Clinical Impression: Intractable nausea and vomiting Alcohol withdrawal Qualifiers: Complication of substance-induced condition: with unspecified complication Qualified Code(s): F10.239 - Alcohol dependence with withdrawal, unspecified - Discharge Information *PRESCRIPTION DRUG MONITORING PROGRAM REVIEWED*: No *COPY OF PRESCRIPTION DRUG MONITORING REPORT IN PATIENT RAUL: No Prescriptions: LORazepam [Ativan] 1 mg PO ASDIRECTED #10 tablet Famotidine [Pepcid AC] 20 mg PO BID #16 tablet Ondansetron [Zofran] 4 mg BUCCAL Q6H PRN #8 tab PRN Reason: nausea or vomiting Referrals: Yolande Ferreira LINE [facility]ER [Primary Care Provider] - Forms: ED Department Discharge Additional Instructions: Evaluation in the emergency room today in regards to acute alcohol withdrawal symptoms with inability to eat or drink due to intractable nausea and vomiting. You were treated with 4 L of intravenous fluids to correct metabolic acidosis which was secondary to alcohol-induced ketosis which means you are breaking down all your fast for energy. Fat breakdown creates 3 different acids that accumulated in your bloodstream that create a metabolic acidosis which in turn c reates nausea and vomiting. This was corrected with IV fluids. Your serum potassium level was also low from not being able to eat and from the alcohol causing wasting of potassium through the urine. This was also corrected while in the emergency department. Suggest clear fluids for the next couple of days until able to eat a regular diet. Suggest Pepcid 20 mg tablet twice daily morning and bedtime for 5 days to relieve gastritis inflammation of the stomach lining from alcohol. --Then use Pepcid 20 mg tablet once at bedtime for another 5 days until stomach lining is completely healed. May use Zofran 4 mg under the tongue every 4-6 hours necessary to relieve any nausea or vomiting. Ativan suggest 1 mg every 8 hours for 2 days and then 1 tablet every 12 hours for 2 days and off which should get you through the worst days of alcohol withdrawal. Of course return to the ED if you develop recurrent nausea and vomiting and medication is not being effective. Sepsis Event Note (ED) - Evaluation Sepsis Screening Result: No Definite Risk - Focused Exam Vital Signs: Vital Signs Temp Pulse Resp BP Pulse Ox 09/19/20 10:25 36.2 C 112 H 16 126/92 H 99 - My Orders Last 24 Hours: My Active Orders 09/19/20 10:30 EKG Documentation Completion [RC] STAT Dextrose 5%-Lactated Ringers 1,000 ml IV ASDIRECTED 09/19/20 10:33 Abdomen 1V Flat [CR] Stat 09/19/20 10:46 CALCIUM, IONIZED, SERUM [REF] Stat PTH, INTACT [REF] Stat 09/19/20 12:15 Dextrose 5%-Lactated Ringers 1,000 ml IV ASDIRECTED - Assessment/Plan Last 24 Hours: My Active Orders 09/19/20 10:30 EKG Documentation Completion [RC] STAT Dextrose 5%-Lactated Ringers 1,000 ml IV ASDIRECTED 09/19/20 10:33 Abdomen 1V Flat [CR] Stat 09/19/20 10:46 CALCIUM, IONIZED, SERUM [REF] Stat PTH, INTACT [REF] Stat 09/19/20 12:15 Dextrose 5%-Lactated Ringers 1,000 ml IV ASDIRECTED
[2020-09-19] MEDS: Dextrose 5%-Lactated Ringers 1,000 ML IV SCH ×5 (10:46→14:26)
[2020-09-19] MEDS ORDERED: Aluminum Hydroxide/Magnesium Hydroxide/Simethicone Susp 30 ML Cup PO ONE (12:00)
[2020-09-19] MEDS ORDERED: Famotidine 20 MG/2 ML SDV IVPUSH ONE (12:00)
[2020-09-19] MEDS: Potassium Chloride 10 MEQ in Premix Bag 1 BAG IV SCH ×4 (12:12→15:36)
[2020-09-19] MEDS ORDERED: diphenhydrAMINE 50 MG/ML SDV IVPUSH ONE (16:30)
--- NOTE | 2020-09-20 13:31 | CR ---
Abdomen: Supine view of the abdomen was obtained. Comparison: Prior right upper quadrant abdominal ultrasound of 04/29/[address] abdomen and pelvis study of 04/29/20. Calcification is seen within the left side of the pelvis compatible with phlebolith. Bowel gas pattern appears within normal limits. No abnormal amounts of stool are seen. Bony structures show nothing acute. Impression: 1. Nothing acute is seen on supine abdominal x-ray. Diagnostic code #1
== END 2020-09-19 17:40 | disposition home or self-care (01) ==
LOC: JD.ED 10:23
DX: F10.239 Alcohol dependence with withdrawal, unspecified (principal); J45.909 Unspecified asthma, uncomplicated; K21.9 Gastro-esophageal reflux disease without esophagitis; E03.9 Hypothyroidism, unspecified; Z79.899 Other long term (current) drug therapy; Z20.822 Contact with and (suspected) exposure to COVID-19
CPT/HCPCS: 36415; 74018; 80053; 80306; 80307; 81001; 81025; 82009; 82330; 82977; 83605; 83690; 83735; 83970; 85025; 85610; 85730; 86140; 87635; 93005; 96365; 96366; 96367; 96375; 99285; A9270; J1170; J1200; J2060; J2550; J3411; J3480; J3490; J7121; 93010; 99284; U0002